=== PATIENT | male | born 1950 | race Two or more races ===

== ENCOUNTER → 2020-09-13 13:34 | Outpatient (BNVA) | payer MEDICARE, SELFPAY | PROVIDERS: PCP Internal Medicine; Visit Provider Urology | CPT/HCPCS: Q3014 ==

== ENCOUNTER 2021-01-15 10:49 | Outpatient (REF) | payer OTHER, SELFPAY ==
--- NOTE | ~2021-01-15 | US_ITS ---
EXAMINATION: US RETROPERITONEAL LIMITED (RENAL ONLY) CLINICAL INFORMATION: Calculus of kidney. COMPARISON: X-ray abdomen KUB 09/04/2020 and 07/22/2017. Renal ultrasound 08/09/2028 and 08/10/2018. TECHNIQUE: Real-time imaging of the kidneys. FINDINGS: RIGHT KIDNEY: 11.7 x 4.3 x 5.8 cm (SAG x AP x TRV). The kidney is normal in size, contour, and echogenicity. Renal cortical thickness is normal. No hydronephrosis. Lower pole cyst measuring up to 3.8 cm. Lower pole stone measuring 1.2 cm and midpole stone measuring 0.9 cm. LEFT KIDNEY: 10.6 x 5.6 x 6.2 cm (SAG x AP x TRV). The kidney is normal in size, contour, and echogenicity. Renal cortical thickness is normal. No hydronephrosis. Mid/lower pole simple cyst measuring 4.1 cm. Midpole stone measuring 0.7 cm. US/US renal BI IMPRESSION: 1. Bilateral renal stones measuring up to 1.2 cm on the right and 0.7 cm on the left. No hydronephrosis. 2. Simple bilateral renal cysts. Findings are not clinically significant and no follow-up imaging is recommended for the renal cysts.
== END 2021-01-15 10:50 | disposition home or self-care (01) ==
LOC: HO.US 10:49
PROVIDERS: Visit Provider Urology
DX: N20.0 Calculus of kidney (principal)
CPT/HCPCS: 76775

== ENCOUNTER 2021-03-13 10:11 | Outpatient (REF) | payer OTHER, MEDICARE, SELFPAY ==
[2021-03-13 10:48] LABS: Hematocrit 41.9 % (42-52); Mean Corpuscular HGB Conc 33.4 g/dl (31.0-36.0); Mean Corpuscular Hemoglobin 30.2 pg (27.0-33.0); Mean Corpuscular Volume 90.3 fL (80-98); Mean Platelet Volume 9.3 fL (9.4-12.4); Platelet Count 265 X10*3/uL (160-400); Red Blood Count 4.64 X10*6/uL (4.60-5.80); Red Cell Distribution Width 13.2 % (11.0-16.0); White Blood Count 9.3 X10*3/uL (4.8-10.8)
[2021-03-13 11:28] LABS: Prostate Specific Antigen 0.45 ng/mL (<0.05-4.0)
[2021-03-17 11:01] LABS: Testosterone, Total 208 ng/dL (250-1100)
== END 2021-03-13 10:12 | disposition home or self-care (01) ==
LOC: HO.LAB 10:11
PROVIDERS: PCP Internal Medicine; Visit Provider Urology
DX: E29.1 Testicular hypofunction (principal); N40.1 Benign prostatic hyperplasia with lower urinary tract symptoms; N13.8 Other obstructive and reflux uropathy; Z12.5 Encounter for screening for malignant neoplasm of prostate
CPT/HCPCS: 36415; 84153; 84403; 85027

== ENCOUNTER → 2021-06-12 12:31 | Outpatient (BNVA) | payer MEDICARE, OTHER, SELFPAY | PROVIDERS: PCP Internal Medicine; Visit Provider Urology | DX: E29.1 Testicular hypofunction (principal); N20.0 Calculus of kidney | CPT/HCPCS: Q3014 ==

== ENCOUNTER 2021-10-29 09:39 | Outpatient (REF) | payer MEDICARE, SELFPAY ==
--- NOTE | ~2021-10-29 | US_ITS ---
EXAMINATION: US RETROPERITONEAL LIMITED (RENAL ONLY) CLINICAL INFORMATION: Calculus of kidney. COMPARISON: US retroperitoneal limited (renal only) 01/15/2021 and 08/09/2019. XR abdomen KUB 09/04/2020 and 07/01/2017. TECHNIQUE: Real-time imaging of the kidneys. FINDINGS: RIGHT KIDNEY: 11.8 x 5.5 x 6.4 cm (SAG x AP x TRV). The kidney is normal in size, contour, and echogenicity. Renal cortical thickness is normal. No hydronephrosis. There is an anechoic cyst in midpole measuring 2.6 x 2.1 x 1.9 cm. There are echogenic stones in the midpole measuring 0.8 x 0.7 x 0.7 cm and lower pole measuring 1.0 x 0.5 x 0.7 cm. LEFT KIDNEY: 11.4 x 5.7 x 5.2 cm (SAG x AP x TRV). The kidney is normal in size, contour, and echogenicity. Renal cortical thickness is normal. No hydronephrosis. There is an anechoic cyst in the midpole measuring 3.7 x 3.5 x 2.9 cm. There is an echogenic nonobstructive stone upper pole measuring 0.7 x 0.3 cm and lower pole measuring 0.4 x 0.5 cm. US/US renal BI IMPRESSION: Bilateral renal cysts. Bilateral nonobstructive echogenic renal calculi.
== END 2021-10-29 09:40 | disposition home or self-care (01) ==
LOC: HO.US 09:39
PROVIDERS: PCP Internal Medicine; Visit Provider Urology
DX: N20.0 Calculus of kidney (principal)
CPT/HCPCS: 76775

== ENCOUNTER 2021-12-03 12:31 | Outpatient (REF) | payer MEDICARE, SELFPAY ==
[2021-12-03 12:55] LABS: Hemoglobin 13.6 g/dl (14.0-18.0); Mean Corpuscular HGB Conc 32.4 g/dl (31.0-36.0); Mean Corpuscular Hemoglobin 29.2 pg (27.0-33.0); Mean Corpuscular Volume 90.1 fL (80.0-98.0); Mean Platelet Volume 8.9 fL (9.4-12.4); Platelet Count 251 X10*3/uL (160-400); Red Blood Count 4.66 X10*6/uL (4.60-5.80); Red Cell Distribution Width 13.5 % (11.0-16.0); White Blood Count 11.2 X10*3/uL (4.8-10.8)
[2021-12-03 13:42] LABS: Prostate Specific Antigen 0.45 ng/mL (<0.05-4.0)
[2021-12-08 11:42] LABS: Testosterone, Total 253 ng/dL (250-1100)
== END 2021-12-03 12:32 | disposition home or self-care (01) ==
LOC: HO.LAB 12:31
PROVIDERS: PCP Internal Medicine; Visit Provider Urology
DX: E29.1 Testicular hypofunction (principal); Z12.5 Encounter for screening for malignant neoplasm of prostate
CPT/HCPCS: 36415; 84153; 84403; 85027

== ENCOUNTER → 2021-12-17 15:15 | Outpatient (BNVA) | payer MEDICARE, SELFPAY | PROVIDERS: PCP Internal Medicine; Visit Provider Urology | DX: E29.1 Testicular hypofunction (principal); N20.0 Calculus of kidney; E11.69 Type 2 diabetes mellitus with other specified complication; N52.1 Erectile dysfunction due to diseases classified elsewhere | CPT/HCPCS: 99212 ==

== ENCOUNTER → 2022-01-02 10:52 | Outpatient (BNVA) | payer MEDICARE, SELFPAY | PROVIDERS: PCP Internal Medicine; Visit Provider Urology | DX: E29.1 Testicular hypofunction (principal) | CPT/HCPCS: 96372 ==

== ENCOUNTER 2022-03-19 10:53 | Outpatient (REF) | payer MEDICARE, SELFPAY ==
[2022-03-19 12:02] LABS: Hematocrit 43.7 % (42.0-52.0); Hemoglobin 14.2 g/dl (14.0-18.0); Mean Corpuscular HGB Conc 32.5 g/dl (31.0-36.0); Mean Corpuscular Hemoglobin 28.5 pg (27.0-33.0); Mean Corpuscular Volume 87.8 fL (80.0-98.0); Mean Platelet Volume 9.2 fL (9.4-12.4); Platelet Count 313 X10*3/uL (160-400); Red Blood Count 4.98 X10*6/uL (4.60-5.80); Red Cell Distribution Width 13.8 % (11.0-16.0); White Blood Count 12.8 X10*3/uL (4.8-10.8)
[2022-03-19 12:26] LABS: Prostate Specific Antigen 0.52 ng/mL (<0.05-4.0)
[2022-03-24 09:47] LABS: Testosterone, Total 698 ng/dL (250-1100)
== END 2022-03-19 10:54 | disposition home or self-care (01) ==
LOC: HO.LAB 10:53
PROVIDERS: PCP Internal Medicine; Visit Provider Urology
DX: Z12.5 Encounter for screening for malignant neoplasm of prostate (principal); E29.1 Testicular hypofunction
CPT/HCPCS: 36415; 84153; 84403; 85027

== ENCOUNTER → 2022-04-02 12:56 | Outpatient (BNVA) | payer MEDICARE, SELFPAY | PROVIDERS: PCP Internal Medicine; Visit Provider Urology | DX: E29.1 Testicular hypofunction (principal); N20.0 Calculus of kidney; N40.1 Benign prostatic hyperplasia with lower urinary tract symptoms; N13.8 Other obstructive and reflux uropathy; E11.69 Type 2 diabetes mellitus with other specified complication; N52.1 Erectile dysfunction due to diseases classified elsewhere | CPT/HCPCS: 99212 ==

== ENCOUNTER → 2022-06-12 13:34 | Outpatient (BNVA) | payer MEDICARE, SELFPAY | PROVIDERS: PCP Internal Medicine; Visit Provider Urology | DX: N40.1 Benign prostatic hyperplasia with lower urinary tract symptoms (principal); N13.8 Other obstructive and reflux uropathy; E29.1 Testicular hypofunction; N52.1 Erectile dysfunction due to diseases classified elsewhere; N20.0 Calculus of kidney; E11.69 Type 2 diabetes mellitus with other specified complication | CPT/HCPCS: Q3014 ==

== ENCOUNTER 2022-09-08 13:58 | Outpatient (REF) | payer MEDICARE, SELFPAY ==
[2022-09-08 14:32] LABS: Hematocrit 37.9 % (42.0-52.0); Hemoglobin 11.7 g/dl (14.0-18.0); Mean Corpuscular HGB Conc 30.9 g/dl (31.0-36.0); Mean Corpuscular Hemoglobin 24.8 pg (27.0-33.0); Mean Corpuscular Volume 80.5 fL (80.0-98.0); Mean Platelet Volume 8.8 fL (9.4-12.4); Platelet Count 404 X10*3/uL (160-400); Red Blood Count 4.71 X10*6/uL (4.60-5.80); Red Cell Distribution Width 17.2 % (11.0-16.0); White Blood Count 13.1 X10*3/uL (4.8-10.8)
[2022-09-08 15:29] LABS: Prostate Specific Antigen 0.95 ng/mL (<0.05-4.0)
[2022-09-14 01:44] LABS: Testosterone, Total 912 ng/dL (250-1100)
== END 2022-09-08 13:59 | disposition home or self-care (01) ==
LOC: HO.LAB 13:58
PROVIDERS: PCP Internal Medicine; Visit Provider Urology
DX: Z12.5 Encounter for screening for malignant neoplasm of prostate (principal); E29.1 Testicular hypofunction
CPT/HCPCS: 36415; 84153; 84403; 85027

== ENCOUNTER → 2022-09-18 15:18 | Outpatient (BNVA) | payer MEDICARE, SELFPAY | PROVIDERS: PCP Internal Medicine; Visit Provider Urology | DX: E29.1 Testicular hypofunction (principal); N20.0 Calculus of kidney; N40.1 Benign prostatic hyperplasia with lower urinary tract symptoms; N13.8 Other obstructive and reflux uropathy; Z79.899 Other long term (current) drug therapy | CPT/HCPCS: Q3014 ==

== ENCOUNTER → 2022-10-08 10:45 | Outpatient (BNVA) | payer MEDICARE, SELFPAY | PROVIDERS: PCP Internal Medicine; Visit Provider Physician Assistant ==

== ENCOUNTER → 2022-10-22 13:32 | Outpatient (BNVA) | payer MEDICARE, SELFPAY | PROVIDERS: PCP Internal Medicine; Visit Provider Physician Assistant Surgical | DX: E66.01 Morbid (severe) obesity due to excess calories (principal); I48.91 Unspecified atrial fibrillation; Z68.42 Body mass index [BMI] 45.0-49.9, adult | CPT/HCPCS: 99202 ==

== ENCOUNTER 2022-10-28 10:47 | Outpatient (REF) | payer MEDICARE, SELFPAY ==
--- NOTE | ~2022-10-28 | XR_ITS ---
EXAMINATION: XR CHEST CLINICAL INFORMATION: Morbid to severe obesity due to excess calories COMPARISON: None available. TECHNIQUE: 2 views of the chest were obtained. FINDINGS: The lungs are hypoexpanded but clear of acute process. The heart size and pulmonary vascularity is normal. There are dual pacer electrodes in right atrium and right ventricle. No gross bony abnormality seen. XR/XR chest 2V IMPRESSION: Hypoexpanded lungs without acute process.
--- NOTE | 2022-10-28 11:06 | ECG_ITS ---
Test Reason : e66.01 Blood Pressure : / mmHG Vent. Rate : 095 BPM Atrial Rate : 095 BPM P-R Int : 192 ms QRS Dur : 088 ms QT Int : 328 ms P-R-T Axes : 038 016 087 degrees QTc Int : 412 ms Normal sinus rhythm Normal ECG No previous ECGs available Referred By: Rock Solis Electronically Signed By:KERRY CELAYA MD
[2022-10-28 11:14] LABS: MANUAL DIFF FLAG NO
[2022-10-28 11:44] LABS: Basophils Absolute Auto 0.1 X10*3/uL (0.0-0.2); Basophils Percent Auto 0.5 % (0-2); Eosinophils Absolute Auto 0.2 X10*3/uL (0.0-0.4); Eosinophils Percent Auto 1.4 % (0-4); Hematocrit 46.1 % (42.0-52.0); Hemoglobin 14.7 g/dl (14.0-18.0); Imm Gran Abs Auto 0.06 X10*3/uL (0.00-0.03); Imm Gran Pct Auto 0.5 % (0.0-0.4); Lymphocytes Absolute Auto 3.2 X10*3/uL (1.2-4.9); Lymphocytes Percent Auto 24.5 % (20-40); Mean Corpuscular HGB Conc 31.9 g/dl (31.0-36.0); Mean Corpuscular Hemoglobin 27.1 pg (27.0-33.0); Mean Corpuscular Volume 85.1 fL (80.0-98.0); Mean Platelet Volume 9.1 fL (9.4-12.4); Monocytes Absolute Auto 1.1 X10*3/uL (0.1-1.2); Monocytes Percent Auto 7.9 % (2-11); Neutrophils Absolute Auto 8.6 x10*3/uL (2.0-8.3); Neutrophils Percent Auto 65.2 % (45-73); Platelet Count 288 X10*3/uL (160-400); Red Blood Count 5.42 X10*6/uL (4.60-5.80); Red Cell Distribution Width 20.9 % (11.0-16.0); White Blood Count 13.2 X10*3/uL (4.8-10.8)
[2022-10-28 11:56] LABS: Estimated Average Glucose 151 mg/dL; Hemoglobin A1c % 6.9 %
[2022-10-28 12:24] LABS: Alanine Aminotransferase 83 U/L (0-40); Albumin Level 4.1 g/dL (3.5-5.0); Alkaline Phosphatase 88 U/L (39-117); Anion Gap 11 (12-20); Aspartate Amino Transferase 53 U/L (5-37); Bilirubin Total 0.9 mg/dL (0.0-1.0); Blood Urea Nitrogen 18 mg/dL (9-16); C Reactive Protein 0.47 mg/dL (< or = 0.50); Calcium 9.3 mg/dL (8.4-10.2); Carbon Dioxide 27 mmol/L (22-29); Chloride 105 mmol/L (96-108); Cholesterol 111 mg/dL; Estimated Glomerular Filt Rate > 60; Glucose Random 210 mg/dL (60-115); HDL Cholesterol 41 mg/dL; Iron 142 mcg/dL (45-160); LDL Cholesterol Calculated 41 mg/dl; Percent Iron Saturation 38 % (15-50); Potassium 4.4 mmol/L (3.3-5.1); Sodium 139 mmol/L (135-145); Total Iron Binding Capacity 376 mcg/dL (228-428); Total Protein 7.2 g/dL (6.5-8.0); Triglycerides 147 mg/dL; Unsaturated Iron Binding 234 ug/dL
[2022-10-28 12:56] LABS: Ferritin 38 ng/mL (20-250); Folate 9.5 ng/mL (> or = 4.0); Insulin 79 uU/mL (2-29); TSH reflex Free T4 0.95 uIU/mL (0.32-4.0); Vitamin B12 228 pg/mL (200-900)
[2022-10-29 16:13] LABS: Calcium (PTHI) 9.4 mg/dL (8.6-10.3); PTHI 26 pg/mL (16-77)
[2022-11-01 04:49] LABS: Zinc 85 mcg/dL (60-130)
[2022-11-01 16:53] LABS: Vitamin B1 7 nmol/L (8-30)
[2022-11-04 23:52] LABS: Vitamin A 49 mcg/dL (38-98)
== END 2022-10-28 10:48 | disposition home or self-care (01) ==
LOC: HO.LAB 10:47
PROVIDERS: PCP Internal Medicine; Visit Provider Physician Assistant Surgical
DX: E11.9 Type 2 diabetes mellitus without complications (principal); E66.01 Morbid (severe) obesity due to excess calories; E78.00 Pure hypercholesterolemia, unspecified; I10 Essential (primary) hypertension
CPT/HCPCS: 36415; 71046; 80053; 80061; 82306; 82607; 82728; 82746; 83036; 83525; 83540; 83970; 84425; 84443; 84590; 84630; 85025; 86140; 93005

== ENCOUNTER → 2022-11-12 12:53 | Outpatient (BNVA) | payer MEDICARE, SELFPAY | PROVIDERS: PCP Internal Medicine; Visit Provider Physician Assistant Surgical | DX: E66.01 Morbid (severe) obesity due to excess calories (principal); E11.9 Type 2 diabetes mellitus without complications; R82.992 Hyperoxaluria; Z68.42 Body mass index [BMI] 45.0-49.9, adult; Z98.84 Bariatric surgery status | CPT/HCPCS: 99212 ==

== ENCOUNTER 2023-03-10 10:22 | Outpatient (REF) | payer MEDICARE, SELFPAY ==
--- NOTE | ~2023-03-10 | US_ITS ---
EXAMINATION: US RETROPERITONEAL LIMITED (RENAL ONLY) CLINICAL INFORMATION: Calculus of kidney. COMPARISON: Renal ultrasound 10/29/2021 and 01/15/2021. X-ray abdomen 09/04/2020. TECHNIQUE: Real-time imaging of the kidneys. FINDINGS: RIGHT KIDNEY: 12.0 x 5.1 x 4.7 cm (SAG x AP x TRV). The kidney is normal in size, contour, and echogenicity. Renal cortical thickness is normal. Echogenic foci noted in the mid and lower pole of the kidney consistent with nonobstructing calculi, the largest measuring 1.5 cm. No hydronephrosis. A benign 4.0 cm Bosniak class I renal cyst is noted which requires no additional imaging or follow up. No solid renal masses are seen. LEFT KIDNEY: 10.8 x 5.4 x 5.4 cm (SAG x AP x TRV). The kidney is normal in size, contour, and echogenicity. Renal cortical thickness is normal. No renal calculi or hydronephrosis. A benign 3.7 cm Bosniak class I renal cyst is noted which requires no additional imaging or follow up. No solid renal masses are seen. US/US renal BI IMPRESSION: 1. Nonobstructing right renal calculi. 2. Bilateral benign Bosniak class I renal cysts which need no additional imaging or follow up.
[2023-03-10 10:51] LABS: Hematocrit 48.7 % (42.0-52.0); Hemoglobin 15.9 g/dl (14.0-18.0); Mean Corpuscular HGB Conc 32.6 g/dl (31.0-36.0); Mean Corpuscular Hemoglobin 29.9 pg (27.0-33.0); Mean Corpuscular Volume 91.5 fL (80.0-98.0); Mean Platelet Volume 9.4 fL (9.4-12.4); Platelet Count 259 X10*3/uL (160-400); Red Blood Count 5.32 X10*6/uL (4.60-5.80); Red Cell Distribution Width 13.8 % (11.0-16.0); White Blood Count 9.7 X10*3/uL (4.8-10.8)
[2023-03-10 11:46] LABS: Prostate Specific Antigen 1.12 ng/mL (<0.05-4.0)
[2023-03-14 16:52] LABS: Testosterone, Total 927 ng/dL (250-1100)
== END 2023-03-10 10:23 | disposition home or self-care (01) ==
LOC: HO.US 10:22
PROVIDERS: PCP Internal Medicine; Visit Provider Urology
DX: Z12.5 Encounter for screening for malignant neoplasm of prostate (principal); N20.0 Calculus of kidney; E29.1 Testicular hypofunction
CPT/HCPCS: 36415; 76775; 84153; 84403; 85027

== ENCOUNTER 2023-03-24 14:08 | Outpatient (AMB) | payer MEDICARE, SELFPAY ==
--- NOTE | 2023-03-24 14:22 | MHC.OFFVIS ---
Intake Intake Visit Reasons: 6m T/PSA/CBC/US(set) Intake Note: Patient is Present for Follow Up labs/US Urology Medication: Vitamin B6, Sildenafil, Tamsulosin, Testosterone Antibiotic Allergies: None Blood Thinners: t3n [facility] Allergies No Known Allergies [No Known Allergies*] Allergy (Verified 03/24/23 14:24) HPI HPI Comments History of Present Illness Details Adeline Gonzalez is a very pleasant male of [place] extraction. He is a patient of Dr Isidro. He is seen for the following urologic conditions - hypogonadism - nephrolithiasis - lower urinary tract symptoms Continue good response to testosterone Labs within normal limits Prescriptions provided Check nephrolithiasis 6 months Hypogonadism: Lab work stable Continue to follow. - testosterone injectable 80 mg weekly The patient presents for hypogonadism which was diagnosed years ago, and the patient reports no current symptoms. Laboratory testing has included Testosterone August 2014 446, August 2015 418 PSA 10/12 0.6 10/13 , Testosterone 247 - switch back to 2 packets per day, 11/12 , Testosterone - 6 pumps - 647, 05/15 , Testosterone 404, PSA 0.6 08/17 T 551, PSA 0.5, 02/14 T 739 PSA 0.8 02/15 T 701 PSA 0.6, 03/19 T 208 PSA 0.5, 12/18 253 0.5 42, 03/20 700 0.5 44, 09/18 T 912 P 1.0, 03/21 t 920 P 1.1 Erectile dysfunction secondary to diabetes Responsive to sildenafil 100 mg on demand Lower urinary tract symptoms Initial presentation with weakness of stream and nocturia Good response to Flomax with decreased nocturia Nephrolithiasis/Urolithiasis: They are here for further evaluation of nephrolithiasis - minimal symptoms. Urolithiasis was diagnosed 2014. The patient previously had kidney stones whose composition w a calcium oxalate 09/15 , calcium oxalate - dihydrate 80%. Laboratory investigations include 11/11 - , Normocalcemia (9.0), Normal PTH, Normal uric acid. 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 Prior treatment(s) include 06/14 R ESWL 12/14 medical management, with allopurinol, vitamin B6. Prior imaging includes a CT (computed tomography) scan of the abdomen/pelvis (stone protocol) August 2014. 3 stones each one to 2 mm in size low pole right kidney. , an x-ray August 2015 4 mm right lower pole, 04/13 R 5mmx3 mid pole 10/13 , , a KUB x-ray 5mm right 04/14 , a KUB x-ray, showing radiodense stone(s) R >L - 6mm 07/16 KUB small fragments on right 01/13 , a renal ultrasound, showing radiodense stone(s) R>L - small each side 08/17 , a renal ultrasound bilateral small stones, right cyst 08/18 renal us - stones 5mm on right, none on left, cysts small bilateral 01/16 renal ultrasound right kidney 1.2 cm stone, left kidney 7 mm, 11/17 renal ultrasound bilateral stones similar size Current therapeutic plan will be Keep on Vit B6 PFSH Medical History Impotence Obesity HTN (hypertension) Diabetes mellitus, type II Hyperoxaluria Weak urinary stream Hypogonadism in male Erectile dysfunction Surgical History S/P panniculectomy S/P ventral herniorrhaphy S/P cardiac pacemaker procedure Hx of laparoscopic gastric banding Hx of knee surgery History of surgery Family History Mother Hypertension Diabetes Father Heart disease Diabetes Sister No problems noted. Sister No problems noted. Sister No problems noted. Sister No problems noted. Sister Diabetes Sister No problems noted. Sister Diabetes Brother No problems noted. Brother Diabetes Son No problems noted. Son No problems noted. Daughter No problems noted. Daughter No problems noted. Daughter Diabetes Social History Alcohol intake: never Patient Tobacco Use Status: Never used Tobacco Review of Systems Const Denies chills and Denies fever(s) Card Reports no additional complaints and Denies syncope Resp Denies cough GI Denies abdominal pain and Denies heartburn Reports as per HPI and Denies change in libido Neuro Denies syncope Psych Denies change in libido Endo Denies change in libido Physical Exam Const General: cooperative, healthy appearing, comfortable and no acute distress Orientation/consciousness: patient oriented x3 HEENT Face and sinus: Yes normal facial exam Mouth: moist mucous membranes Neck Neck: Yes normal visual inspection, Yes full ROM and Yes trachea midline Chest Chest palpation & inspection: normal inspection of the chest Resp Effort & Inspection: normal respiratory effort, able to speak in complete sentences and no respiratory distress GI Inspection: Yes normal to inspection Back/Spine/Pelvis Cervical Spine: normal cervical lordosis Thoracic/Lumbar Spine: thoracic and lumbar spine normal to inspection Skin General skin exam: no rashes or lesions noted Neuro General: patient oriented x3, gait normal, tone normal and moves all extremities Extrem General: Yes normal to inspection and Yes capillary refill normal Assessment & Plan Assessment & Plan (1) BPH w urinary obs/LUTS: Code(s): N40.1 - Benign prostatic hyperplasia with lower urinary tract symptoms; N13.8 - Other obstructive and reflux uropathy (2) Erectile dysfunction associated with type 2 diabetes mellitus: Code(s): E11.69 - Type 2 diabetes mellitus with other specified complication; N52.1 - Erectile dysfunction due to diseases classified elsewhere (3) Nephrolithiasis: Code(s): N20.0 - Calculus of kidney (4) Hypogonadism in male: Code(s): E29.1 - Testicular hypofunction Plan Six month follow-up lab work Orders: Orders Prostate Specific Antigen 6 Months E29.1 - Testicular hypofunction Complete Blood Count no Diff 6 Months E29.1 - Testicular hypofunction Testosterone, Total 6 Months E29.1 - Testicular hypofunction Medications: New tadalafil 5 mg PO DAILY 90 tabs 1RF sexual activity 90 days E11. - Type 2 diabetes mellitus with other specified complication, N52.1 - Erectile dysfunction due to diseases classified elsewhere tadalafil On demand medication take 60 minutes before intended activity 20 mg PO ONCE PRN 30 tabs 0RF sexual activity 30 days E11 - Type 2 diabetes mellitus with other specified complication, N52.1 - Erectile dysfunction due to diseases classified elsewhere Patient Instructions: Imaging studies, laboratory and physical exam results were discussed and reviewed in detail. No major barriers to patient understanding were identified. An opportunity to ask questions regarding the treatment plan was provided. All questions were answered. The patient expressed understanding and agreement with the above treatment plan. The patient is aware they should contact our office by phone for worsening of their current condition or the appearance of new urologic symptoms. Compliance is encouraged with any medications and followup testing that is ordered. It is a privilege to participate in the urologic care of your patient. If you have any questions or concerns regarding treatment for the above conditions, or other urologic issues, please do not hesitate to contact me. The office telephone contact is [phone]. This note is constructed using voice recognition software. While every effort has been made to ensure accuracy cloth napping supervisor errors may have been included. Yours sincerely, Dr Paul Macdonald MD, [facility] - Urology Providers of Expert, Compassionate Care for the Genitourinary System Coding Level of Care Code Est Pt Level 3 (44482) Diagnoses BPH w urinary obs/LUTS N40.1; N13.8 Erectile dysfunction associated with type 2 diabetes mellitus E11.69; N52.1 Nephrolithiasis N20.0 Hypogonadism in male E29.1
== END 2023-03-24 14:55 | disposition home or self-care (01) ==
PROVIDERS: PCP Internal Medicine; Visit Provider Urology
DX: N40.1 Benign prostatic hyperplasia with lower urinary tract symptoms (principal); N13.8 Other obstructive and reflux uropathy; E11.69 Type 2 diabetes mellitus with other specified complication; N52.1 Erectile dysfunction due to diseases classified elsewhere; N20.0 Calculus of kidney; E29.1 Testicular hypofunction
CPT/HCPCS: 99213

== ENCOUNTER → 2023-03-24 14:08 | Outpatient (BNVA) | payer MEDICARE, SELFPAY | PROVIDERS: PCP Internal Medicine; Visit Provider Urology | DX: N40.1 Benign prostatic hyperplasia with lower urinary tract symptoms (principal); N13.8 Other obstructive and reflux uropathy; E11.69 Type 2 diabetes mellitus with other specified complication; N52.1 Erectile dysfunction due to diseases classified elsewhere; N20.0 Calculus of kidney; E29.1 Testicular hypofunction | CPT/HCPCS: 99212 ==

== ENCOUNTER 2023-09-22 13:48 | Outpatient (AMB) | payer MEDICARE, SELFPAY ==
--- NOTE | 2023-09-22 13:49 | A.OFFVIS_ITS ---
Intake Intake Visit Reasons: 6M PSA/T/CBC(set)Confirmed Intake Note: Patient is Present for Telephone Follow Up Urology Med: Vitamin B6, Sildenafil,Tadalafil, Testosterone Antibiotic Allergy: None Blood Thinner: Eliquis Allergies No Known Allergies [No Known Allergies*] Allergy (Verified 09/22/23 13:49) Medication List - Last Reconciled 09/22/23 by Paul Macdonald MD allopurinol 100 mg PO DAILY 90 days apixaban (Eliquis) 5 mg PO BID atorvastatin 40 mg PO DAILY blood sugar diagnostic (Pandora.TVTouch Verio test strips) As directed blood-glucose meter (Pandora.TVTouch Verio Flex Meter) As directed cholecalciferol (vitamin D3) 50 mcg PO DAILY cyanocobalamin (vitamin B-12) 500 mcg PO DAILY ferrous sulfate (FeroSul) 325 mg PO DAILY glipizide ER 2.5 mg PO DAILY lancets (HYLT [employer] Delica Plus Lancet) As directed loratadine 10 mg PO DAILY losartan 100 mg PO DAILY metformin 1,000 mg PO BID metoprolol succinate ER 25 mg PO DAILY needle (disp) 18 G (BD Regular Bevel [place]) As directed weekly needle (disp) 25 gauge (BD Regular Bevel [place]) As directed weekly omeprazole 40 mg PO DAILY pyridoxine (vitamin B6) 100 mg PO DAILY 90 days safety needles (BD Eclipse Luer-Naveed) As directed sildenafil 100 mg PO ONCE PRN 30 days syringe (disposable) (BD Luer-Naveed Syringe) Testosterone injection weekly tadalafil 20 mg PO ONCE PRN 30 days tadalafil 5 mg PO DAILY 90 days tamsulosin (Flomax) 0.4 mg PO BEDTIME 90 days testosterone cypionate (Depo-Testosterone) 80 mg (0.4 mL) subcut QWEEK 4 weeks thiamine HCl (vitamin B1) 100 mg PO DAILY HPI HPI Comments History of Present Illness Details Adeline Gonzalez is a very pleasant male of [place] extraction. He is a patient of Dr Isidro. He is seen for the following urologic conditions - hypogonadism - nephrolithiasis - lower urinary tract symptoms Telemedicine Evaluation 15 min Consultation [employer] Video attempted Continue good response to testosterone Labs within normal limits Prescriptions provided Hypogonadism: Lab work stable Continue to follow. - testosterone injectable 80 mg weekly The patient presents for hypogonadism which was diagnosed years ago, and the patient reports no current symptoms. Laboratory testing has included Testosterone August 2014 446, August 2015 418 PSA 10/12 0.6 10/13 , Testosterone 247 - switch back to 2 packets per day, 11/12 , Testosterone - 6 pumps - 647, 05/15 , Testosterone 404, PSA 0.6 08/17 T 551, PSA 0.5, 02/14 T 739 PSA 0.8 02/15 T 701 PSA 0.6, 03/19 T 208 PSA 0.5, 12/18 253 0.5 42, 03/20 700 0.5 44, 09/18 T 912 P 1.0, 03/21 T920 P 1.1, 09/19 T 640 Erectile dysfunction secondary to diabetes Responsive to sildenafil 100 mg on demand Lower urinary tract symptoms Initial presentation with weakness of stream and nocturia Good response to Flomax with decreased nocturia Nephrolithiasis/Urolithiasis: They are here for further evaluation of nephrolithiasis - minimal symptoms. Urolithiasis was diagnosed 2014. The patient previously had kidney stones whose composition w a calcium oxalate 09/15 , calcium oxalate - dihydrate 80%. Laboratory investigations include 11/11 - , Normocalcemia (9.0), Normal PTH, Normal uric acid. 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 Prior treatment(s) include 06/14 R ESWL 12/14 medical management, with allopurinol, vitamin B6. Prior imaging includes a CT (computed tomography) scan of the abdomen/pelvis (stone protocol) August 2014. 3 stones each one to 2 mm in size low pole right kidney. , an x-ray August 2015 4 mm right lower pole, 04/13 R 5mmx3 mid pole 10/13 , , a KUB x-ray 5mm right 04/14 , a KUB x-ray, showing radiodense stone(s) R >L - 6mm 07/16 KUB small fragments on right 01/13 , a renal ultrasound, showing radiodense stone(s) R>L - small each side 08/17 , a renal ultrasound bilateral small stones, right cyst 08/18 renal us - stones 5mm on right, none on left, cysts small bilateral 01/16 renal ultrasound right kidney 1.2 cm stone, left kidney 7 mm, 11/17 renal ultrasound bilateral stones similar size Current therapeutic plan will be Keep on Vit B6 PFSH Medical History Impotence Obesity HTN (hypertension) Diabetes mellitus, type II Hyperoxaluria Weak urinary stream Hypogonadism in male Erectile dysfunction Surgical History S/P panniculectomy S/P ventral herniorrhaphy S/P cardiac pacemaker procedure Hx of laparoscopic gastric banding Hx of knee surgery History of surgery Family History Mother Hypertension Diabetes Father Heart disease Diabetes Sister No problems noted. Sister No problems noted. Sister No problems noted. Sister No problems noted. Sister Diabetes Sister No problems noted. Sister Diabetes Brother No problems noted. Brother Diabetes Son No problems noted. Son No problems noted. Daughter No problems noted. Daughter No problems noted. Daughter Diabetes Social History Alcohol intake: never Patient Tobacco Use Status: Never used Tobacco Review of Systems Const All systems reviewed & are unremarkable except as noted in HPI and below Reports no additional complaints Resp Reports no additional complaints GI Reports no additional complaints Reports as per HPI Musc Reports no additional complaints Physical Exam Telemedicine evaluation Appropriate responses Regular breathing rate and rhythm HEENT Head: Yes normal to inspection Ears: hearing grossly normal bilaterally Eyes General: appearance normal, both eyes and all related structures Neck Neck: Yes normal visual inspection Chest Chest palpation & inspection: normal inspection of the chest Resp Effort & Inspection: normal respiratory effort and able to speak in complete sentences Assessment & Plan Assessment & Plan (1) BPH w urinary obs/LUTS: Code(s): N40.1 - Benign prostatic hyperplasia with lower urinary tract symptoms; N13.8 - Other obstructive and reflux uropathy (2) Erectile dysfunction associated with type 2 diabetes mellitus: Code(s): E11.69 - Type 2 diabetes mellitus with other specified complication; N52.1 - Erectile dysfunction due to diseases classified elsewhere Plan Six-month follow-up Orders: Orders Complete Blood Count no Diff 6 Months E29.1 - Testicular hypofunction Testosterone, Total 6 Months E29.1 - Testicular hypofunction Prostate Specific Antigen 6 Months E29.1 - Testicular hypofunction Medications: Refilled tadalafil 5 mg PO DAILY 90 tabs 1RF sexual activity 90 days E11.69 - Type 2 diabetes mellitus with other specified complication, N52.1 - Erectile dysfunction due to diseases classified elsewhere Patient Instructions: Imaging studies, laboratory and physical exam results were discussed and reviewed in detail. No major barriers to patient understanding were identified. An opportunity to ask questions regarding the treatment plan was provided. All questions were answered. The patient expressed understanding and agreement with the above treatment plan. The patient is aware they should contact our office by phone for worsening of their current condition or the appearance of new urologic symptoms. Compliance is encouraged with any medications and followup testing that is ordered. It is a privilege to participate in the urologic care of your patient. If you have any questions or concerns regarding treatment for the above conditions, or other urologic issues, please do not hesitate to contact me. The office telephone contact is [phone]. This note is constructed using voice recognition software. While every effort has been made to ensure accuracy anode crew supervisor errors may have been included. Yours sincerely, Dr Paul Macdonald MD, [facility] - Urology Providers of Expert, Compassionate Care for the Genitourinary System Telehealth Telehealth Location of provider rendering services: practice address Location of patient: address on file Patient Identification confirmed using: Name, : Yes Telehealth method: video Patient verbally consented to treatment: Yes Patient verbally consented to billing insurance company: Yes Patient informed of any privacy concerns related to visit: Yes Coding Level of Care Code Tele Est Pt Level 3 (43430) Diagnoses BPH w urinary obs/LUTS N40.1; N13.8 Erectile dysfunction associated with type 2 diabetes mellitus E11.69; N52.1
== END 2023-09-22 15:31 | disposition home or self-care (01) ==
LOC: HO.HUSH 13:48
PROVIDERS: PCP Internal Medicine; Visit Provider Urology
DX: N40.1 Benign prostatic hyperplasia with lower urinary tract symptoms (principal); N13.8 Other obstructive and reflux uropathy; E11.69 Type 2 diabetes mellitus with other specified complication; N52.1 Erectile dysfunction due to diseases classified elsewhere
CPT/HCPCS: 99213

== ENCOUNTER → 2023-09-22 13:48 | Outpatient (BNVA) | payer MEDICARE, SELFPAY | PROVIDERS: PCP Internal Medicine; Visit Provider Urology ==

== ENCOUNTER 2024-03-09 10:58 | Outpatient (REF) | payer MEDICARE, SELFPAY ==
[2024-03-09 11:38] LABS: Mean Corpuscular HGB Conc 33.3 g/dl (31.0-36.0); Mean Platelet Volume 8.9 fL (9.4-12.4); Platelet Count 253 X10*3/uL (160-400); Red Blood Count 5.16 X10*6/uL (4.60-5.80); Red Cell Distribution Width 13.6 % (11.0-16.0); White Blood Count 8.5 X10*3/uL (4.8-10.8)
[2024-03-09 12:34] LABS: Prostate Specific Antigen 0.96 ng/mL (<0.05-4.0)
[2024-03-13 15:24] LABS: Testosterone, Total 797 ng/dL (250-1100)
== END 2024-03-09 10:59 | disposition home or self-care (01) ==
LOC: HO.LAB 10:58
PROVIDERS: PCP Internal Medicine; Visit Provider Urology
DX: E29.1 Testicular hypofunction (principal); Z12.5 Encounter for screening for malignant neoplasm of prostate
CPT/HCPCS: 36415; 84153; 84403; 85027

== ENCOUNTER 2024-03-23 12:53 | Outpatient (AMB) | payer MEDICARE, SELFPAY ==
--- NOTE | 2024-03-23 12:56 | A.OFFVIS_ITS ---
Intake Visit Reasons: 6M PSA/Testosterone(set) Intake Note: Patient is Present for Follow Up PSA/Testosterone Urology Medication: Tadalafil, Tamsulosin,Vitamin B6, Testosterone Antibiotic Allergies: None Blood Thinners: Eliquis Recent labs: 03/09/24 PSA: 0.96 Testo: 797 Recent Hemoglobin A1C: 6.9 (2022) Vault Clerk Required: No Accompanied by: Self / Same As Patient Allergies No Known Allergies [No Known Allergies*] Allergy (Verified 03/23/24 13:03) Medication List - Last Reconciled 03/23/24 by Paul Macdonald MD alfuzosin ER 10 mg PO BEDTIME 90 days allopurinol 100 mg PO DAILY 90 days apixaban (Eliquis) 5 mg PO BID atorvastatin 40 mg PO DAILY blood sugar diagnostic ([employer] Verio test strips) As directed blood-glucose meter ([employer] Verio Flex Meter) As directed cholecalciferol (vitamin D3) 50 mcg PO DAILY cyanocobalamin (vitamin B-12) 500 mcg PO DAILY ferrous sulfate (FeroSul) 325 mg PO DAILY glipizide ER 2.5 mg PO DAILY lancets (Mobifusion Delica Plus Lancet) As directed loratadine 10 mg PO DAILY losartan 100 mg PO DAILY metformin 1,000 mg PO BID metoprolol succinate ER 25 mg PO DAILY needle (disp) 18 G (BD Regular Bevel [place]) As directed weekly needle (disp) 25 gauge (BD Regular Bevel [place]) As directed weekly omeprazole 40 mg PO DAILY pyridoxine (vitamin B6) 100 mg PO DAILY 90 days safety needles (BD Eclipse Luer-Naveed) As directed sildenafil 100 mg PO ONCE PRN 30 days syringe (disposable) (BD Luer-Naveed Syringe) Testosterone injection weekly tadalafil 5 mg PO DAILY 90 days tadalafil 20 mg PO ONCE PRN 30 days testosterone cypionate (Depo-Testosterone) 80 mg (0.4 mL) subcut QWEEK 4 weeks thiamine HCl (vitamin B1) 100 mg PO DAILY HPI Comments Details: Adeline Gonzalez is a very pleasant male of [place] extraction. He is a patient of Dr Isidro. He is seen for the following urologic conditions - hypogonadism - nephrolithiasis - lower urinary tract symptoms Continue good response to testosterone Labs within normal limits Would like to increase tadalafil on demand Injection provided Also has had retrograde ejaculation and Will switch from Flomax to alfuzosin Hypogonadism: Lab work stable Continue to follow. - testosterone injectable 80 mg weekly The patient presents for hypogonadism which was diagnosed years ago, and the patient reports no current symptoms. Laboratory testing has included Testosterone August 2014 446, August 2015 418 PSA 10/12 0.6 10/13 , Testosterone 247 - switch back to 2 packets per day, 11/12 , Testosterone - 6 pumps - 647, 05/15 , Testosterone 404, PSA 0.6 08/17 T 551, PSA 0.5, 02/14 T 739 PSA 0.8 02/15 T 701 PSA 0.6, 03/19 T 208 PSA 0.5, 12/18 253 0.5 42, 03/20 700 0.5 44, 09/18 T 912 P 1.0, 03/21 T920 P 1.1, 09/19 T 640, 03/22 800 0.96 48 Erectile dysfunction secondary to diabetes As responsive to daily 5 mg tadalafil and on demand Lower urinary tract symptoms Initial presentation with weakness of stream and nocturia Good response to Flomax with decreased nocturia Switch from Flomax to alfuzosin for retrograde ejaculation Nephrolithiasis/Urolithiasis: They are here for further evaluation of nephrolithiasis - minimal symptoms. Urolithiasis was diagnosed 2014. The patient previously had kidney stones whose composition w a calcium oxalate 09/15 , calcium oxalate - dihydrate 80%. Laboratory investigations include 11/11 - , Normocalcemia (9.0), Normal PTH, Normal uric acid. 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 Prior treatment(s) include 06/14 R ESWL 12/14 medical management, with allopurinol, vitamin B6. Prior imaging includes a CT (computed tomography) scan of the abd omen/pelvis (stone protocol) August 2014. 3 stones each one to 2 mm in size low pole right kidney. , an x-ray August 2015 4 mm right lower pole, 04/13 R 5mmx3 mid pole 10/13 , , a KUB x-ray 5mm right 04/14 , a KUB x-ray, showing radiodense stone(s) R >L - 6mm 07/16 KUB small fragments on right 01/13 , a renal ultrasound, showing radiodense stone(s) R>L - small each side 08/17 , a renal ultrasound bilateral small stones, right cyst 08/18 renal us - stones 5mm on right, none on left, cysts small bilateral 01/16 renal ultrasound right kidney 1.2 cm stone, left kidney 7 mm, 11/17 renal ultrasound bilateral stones similar size Current therapeutic plan will be Keep on Vit B6 [facility] Medical History Impotence Obesity HTN (hypertension) Diabetes mellitus, type II Hyperoxaluria Weak urinary stream Hypogonadism in male Erectile dysfunction Surgical History S/P panniculectomy S/P ventral herniorrhaphy S/P cardiac pacemaker procedure Hx of laparoscopic gastric banding Hx of knee surgery History of surgery Family History Mother Hypertension Diabetes Father Heart disease Diabetes Sister No problems noted. Sister No problems noted. Sister No problems noted. Sister No problems noted. Sister Diabetes Sister No problems noted. Sister Diabetes Brother No problems noted. Brother Diabetes Son No problems noted. Son No problems noted. Daughter No problems noted. Daughter No problems noted. Daughter Diabetes Social History Alcohol intake: never Patient Tobacco Use Status: Never used Tobacco Review of Systems Const Denies chills and Denies fever(s) Card Reports no additional complaints and Denies syncope Resp Denies cough GI Denies abdominal pain and Denies heartburn Reports as per HPI and Denies change in libido Neuro Denies syncope Psych Denies change in libido Endo Denies change in libido Physical Exam Const General: cooperative, healthy appearing, comfortable and no acute distress Orientation/consciousness: patient oriented x3 HEENT Face and sinus: Yes normal facial exam Mouth: moist mucous membranes Neck Neck: Yes normal visual inspection, Yes full ROM and Yes trachea midline Chest Chest palpation & inspection: normal inspection of the chest Resp Effort & Inspection: normal respiratory effort, able to speak in complete sentences and no respiratory distress GI Inspection: Yes normal to inspection Back/Spine/Pelvis Cervical Spine: normal cervical lordosis Thoracic/Lumbar Spine: thoracic and lumbar spine normal to inspection Skin General skin exam: no rashes or lesions noted Neuro General: patient oriented x3, gait normal, tone normal and moves all extremities Extrem General: Yes normal to inspection and Yes capillary refill normal Assessment & Plan Assessment & Plan (1) BPH w urinary obs/LUTS: Code(s): N40.1 - Benign prostatic hyperplasia with lower urinary tract symptoms; N13.8 - Other obstructive and reflux uropathy Category: Medical (2) Erectile dysfunction associated with type 2 diabetes mellitus: Code(s): E11.69 - Type 2 diabetes mellitus with other specified complication; N52.1 - Er ectile dysfunction due to diseases classified elsewhere Category: Medical (3) Hypogonadism in male: Code(s): E29.1 - Testicular hypofunction Category: Medical Plan Three-month follow-up tele Medications: New alfuzosin ER Take before bedtime 10 mg PO BEDTIME 90 days 90 tabs 0RF N13.8 - Other obstructive and reflux uropathy, N40.1 - Benign prostatic hyperplasia with lower urinary tract symptoms, R39.12 - Poor urinary stream Refilled testosterone cypionate (Depo-Testosterone) 80 mg (0.4 mL) subcut QWEEK 4 weeks 2 mL 5RF E29.1 - Testicular hypofunction, [id number] tadalafil 5 mg PO DAILY 90 days 90 tabs 1RF sexual activity E11.69 - Type 2 diabetes mellitus with other specified complication, N52.1 - Erectile dysfunction due to diseases classified elsewhere tadalafil On demand medication take 60 minutes before intended activity 20 mg PO ONCE 30 days PRN 30 tabs 1RF sexual activity E11.69 - Type 2 diabetes mellitus with other specified complication, N52.1 - Erectile dysfunction due to diseases classified elsewhere Discontinued tamsulosin (Flomax) Discontinued Reason: Doctor's Order 0.4 mg PO BEDTIME 90 days 90 caps 1RF N13.8 - Other obstructive and reflux uropathy, N40.1 - Benign prostatic hyperplasia with lower urinary tract symptoms Patient Instructions: Imaging studies, laboratory and physical exam results were discussed and reviewed in detail. No major barriers to patient understanding were identified. An opportunity to ask questions regarding the treatment plan was provided. All questions were answered. The patient expressed understanding and agreement with the above treatment plan. The patient is aware they should contact our office by phone for worsening of their current condition or the appearance of new urologic symptoms. Compliance is encouraged with any medications and followup testing that is ordered. It is a privilege to participate in the urologic care of your patient. If you have any questions or concerns regarding treatment for the above conditions, or other urologic issues, please do not hesitate to contact me. The office telephone contact is [phone]. This note is constructed using voice recognition software. While every effort has been made to ensure accuracy manager global communications errors may have been included. Yours sincerely, Dr Paul Macdonald MD, [facility] - Urology Providers of Expert, Compassionate Care for the Genitourinary System Coding Level of Care Code Est Pt Level 4 (30346) Diagnoses BPH w urinary obs/LUTS N40.1; N13.8 Erectile dysfunction associated with type 2 diabetes mellitus E11.69; N52.1 Hypogonadism in male E29.1
== END 2024-03-23 13:28 | disposition home or self-care (01) ==
PROVIDERS: PCP Internal Medicine; Visit Provider Urology
DX: N40.1 Benign prostatic hyperplasia with lower urinary tract symptoms (principal); N13.8 Other obstructive and reflux uropathy; E11.69 Type 2 diabetes mellitus with other specified complication; N52.1 Erectile dysfunction due to diseases classified elsewhere; E29.1 Testicular hypofunction
CPT/HCPCS: 99214

== ENCOUNTER → 2024-03-23 12:53 | Outpatient (BNVA) | payer MEDICARE, SELFPAY | PROVIDERS: PCP Internal Medicine; Visit Provider Urology | DX: N40.1 Benign prostatic hyperplasia with lower urinary tract symptoms (principal); N13.8 Other obstructive and reflux uropathy; N52.1 Erectile dysfunction due to diseases classified elsewhere; E11.69 Type 2 diabetes mellitus with other specified complication; E29.1 Testicular hypofunction | CPT/HCPCS: 99212 ==

== ENCOUNTER 2024-06-17 13:02 | Outpatient (AMB) | payer MEDICARE, SELFPAY ==
--- NOTE | 2024-06-17 13:02 | A.OFFVIS_ITS ---
Intake Visit Reasons: 3m follow up Intake Note: Patient is present for 3M F/U Urology Medication:ALLOPURINOL,VITAMIN B6,SILDENAFIL,TADALAFIL,TESTOSTERONE,ALFUZOSIN Antibiotic Allergy:NONE Blood Thinner:APIXABAN Horticultural Worker Required: No Allergies No Known Allergies [No Known Allergies*] Allergy (Verified 06/17/24 13:03) HPI Comments Details: Adeline Gonzalez is a very pleasant male of [place] extraction. He is a patient of Dr Isidro. He is seen for the following urologic conditions - hypogonadism - nephrolithiasis - lower urinary tract symptoms Telemedicine Evaluation 15 min Consultation Jobulous Dolores Video Follow-up switch from Flomax to alfuzosin Tadalafil 5 mg daily with 20 on demand 40% effective Increased daily to 10 mg with 40 mg on demand Prescriptions refilled Three-month follow-up office labs Hypogonadism: Lab work stable Continue to follow. - testosterone injectable 80 mg weekly The patient presents for hypogonadism which was diagnosed years ago, and the patient reports no current symptoms. Laboratory testing has included Testosterone August 2014 446, August 2015 418 PSA 10/12 0.6 10/13 , Testosterone 247 - switch back to 2 packets per day, 11/12 , Testosterone - 6 pumps - 647, 05/15 , Testosterone 404, PSA 0.6 08/17 T 551, PSA 0.5, 02/14 T 739 PSA 0.8 02/15 T 701 PSA 0.6, 03/19 T 208 PSA 0.5, 12/18 253 0.5 42, 03/20 700 0.5 44, 09/18 T 912 P 1.0, 03/21 T920 P 1.1, 09/19 T 640, 03/22 800 0.96 48 Erectile dysfunction secondary to diabetes As responsive to daily 5 mg tadalafil and on demand Lower urinary tract symptoms Initial presentation with weakness of stream and nocturia Good response to Flomax with decreased nocturia Switch from Flomax to alfuzosin for retrograde ejaculation Nephrolithiasis/Urolithiasis: They are here for further evaluation of nephrolithiasis - minimal symptoms. Urolithiasis was diagnosed 2014. The patient previously had kidney stones whose composition w a calcium oxalate 09/15 , calcium oxalate - dihydrate 80%. Laboratory investigations include 11/11 - , Normocalcemia (9.0), Normal PTH, Normal uric acid. 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 Prior treatment(s) include 06/14 R ESWL 12/14 medical management, with allopurinol, vitamin B6. Prior imaging includes a CT (computed tomography) scan of the abdomen/pelvis (stone protocol) August 2014. 3 stones each one to 2 mm in size low pole right kidney. , an x-ray August 2015 4 mm right lower pole, 04/13 R 5mmx3 mid pole 10/13 , , a KUB x-ray 5mm right 04/14 , a KUB x-ray, showing radiodense stone(s) R >L - 6mm 07/16 KUB small fragments on right 01/13 , a renal ultrasound, showing radiodense stone(s) R>L - small each side 08/17 , a renal ultrasound bilateral small stones, right cyst 08/18 renal us - stones 5mm on right, none on left, cysts small bilateral 01/16 renal ultrasound right kidney 1.2 cm stone, left kidney 7 mm, 11/17 renal ultrasound bilateral stones similar size Current therapeutic plan will be Keep on Vit B6 PFSH Medical History Impotence Obesity HTN (hypertension) Diabetes mellitus, type II Hyperoxaluria Weak urinary stream Hypogonadism in male Erectile dysfunction Surgical History S/P panniculectomy S/P ventral herniorrhaphy S/P cardiac pacemaker procedure Hx of laparoscopic gastric banding Hx of knee surgery History of surgery Family History Mother Hypertension Diabetes Father Heart disease Diabetes Sister No problems noted. Sister No problems noted. Sister No problems noted. Sister No problems noted. Sister Diabetes Sister No problems noted. Sister Diabetes Brother No problems noted. Brother Diabetes Son No problems noted. Son No problems noted. Daughter No problems noted. Daughter No problems noted. Daughter Diabetes Social History Alcohol intake: never Patient Tobacco Use Status: Never used Tobacco Review of Systems Const All systems reviewed & are unremarkable except as noted in HPI and below Reports no additional complaints Resp Reports no additional complaints GI Reports no additional complaints Reports as per HPI Musc Reports no additional complaints Physical Exam Telemedicine evaluation Appropriate responses Regular breathing rate and rhythm HEENT Head: Yes normal to inspection Ears: hearing grossly normal bilaterally Eyes General: appearance normal, both eyes and all related structures Neck Neck: Yes normal visual inspection Chest Chest palpation & inspection: normal inspection of the chest Resp Effort & Inspection: normal respiratory effort and able to speak in complete sentences Telehealth Telehealth Telehealth Platform: Jobulous Location of provider rendering services: practice address Location of patient: address on file Patient Identification confirmed using: Name, : Yes Telehealth method: video Patient verbally consented to treatment: Yes Patient verbally consented to billing insurance company: Yes Patient informed of any privacy concerns related to visit: Yes Minutes spent on Phone/Video with Pt.: 15 Assessment & Plan Assessment & Plan (1) Nephrolithiasis: Code(s): N20.0 - Calculus of kidney Category: Medical (2) Erectile dysfunction associated with type 2 diabetes mellitus: Code(s): E11.69 - Type 2 diabetes mellitus with other specified complication; N52.1 - Erectile dysfunction due to diseases classified elsewhere Category: Medical (3) Hypogonadism in male: Code(s): E29.1 - Testicular hypofunction Category: Medical Plan Three-month follow-up lab work Orders: Orders Prostate Specific Antigen 3 Months E29.1 - Testicular hypofunction Testosterone, Total 3 Months E29.1 - Testicular hypofunction Complete Blood Count no Diff 3 Months E29.1 - Testicular hypofunction Medications: Changed From tadalafil 5 mg PO DAILY 90 days 90 tabs 1RF sexual activity E11.69 - Type 2 diabetes mellitus with other specified complication, N52.1 - Erectile dysfunction due to diseases classified elsewhere To tadalafil 10 mg PO DAILY 90 days 90 tabs 1RF sexual activity E11.69 - Type 2 diabetes mellitus with other specified complication, N52.1 - Erectile dysfunction due to diseases classified elsewhere Refilled alfuzosin ER Take before bedtime 10 mg PO BEDTIME 90 days 90 tabs 0RF N13.8 - Other obstructive and reflux uropathy, N40.1 - Benign prostatic hyperplasia with lower urinary tract symptoms, R39.12 - Poor urinary stream Patient Instructions: Imaging studies, laboratory and physical exam results were discussed and reviewed in detail. No major barriers to patient understanding were identified. An opportunity to ask questions regarding the treatment plan was provided. All questions were answered. The patient expressed understanding and agreement with the above treatment plan. The patient is aware they should contact our office by phone for worsening of their current condition or the appearance of new urologic symptoms. Compliance is encouraged with any medications and followup testing that is ordered. It is a privilege to participate in the urologic care of your patient. If you have any questions or concerns regarding treatment for the above conditions, or other urologic issues, please do not hesitate to contact me. The office telephone contact is [phone]. This note is constructed using voice recognition software. While every effort has been made to ensure accuracy watch repair technician errors may have been included. Yours sincerely, Dr Paul Macdonald MD, [facility] - Urology Providers of Expert, Compassionate Care for the Genitourinary System Coding Level of Care Code Tele Est Pt Level 4 (79069) Diagnoses Nephrolithiasis N20.0 Erectile dysfunction associated with type 2 diabetes mellitus E11.69; N52.1 Hypogonadism in male E29.1
== END 2024-06-17 13:43 | disposition home or self-care (01) ==
LOC: HO.HUSH 13:02
PROVIDERS: PCP Internal Medicine; Visit Provider Urology
DX: N20.0 Calculus of kidney (principal); E11.69 Type 2 diabetes mellitus with other specified complication; N52.1 Erectile dysfunction due to diseases classified elsewhere; E29.1 Testicular hypofunction
CPT/HCPCS: 99214

== ENCOUNTER 2024-09-09 11:41 | Outpatient (REF) | payer MEDICARE, SELFPAY ==
[2024-09-09 12:23] LABS: Hemoglobin 15.9 g/dl (14.0-18.0); Mean Corpuscular HGB Conc 33.8 g/dl (31.0-36.0); Mean Corpuscular Hemoglobin 31.4 pg (27.0-33.0); Mean Corpuscular Volume 92.7 fL (80.0-98.0); Mean Platelet Volume 9.2 fL (9.4-12.4); Platelet Count 223 X10*3/uL (160-400); Red Blood Count 5.07 X10*6/uL (4.60-5.80); Red Cell Distribution Width 13.3 % (11.0-16.0); White Blood Count 11.7 X10*3/uL (4.8-10.8)
[2024-09-09 13:13] LABS: Prostate Specific Antigen 0.83 ng/mL (<0.05-4.0)
--- OUTSIDE RECORDS SUMMARY | 2024-09-09 13:34 | XMS_ITS | Encounter Summary ---
Author Organization [facility] Address [address] [place] [address] Care Team Providers Care Diesel Engine Mechanic Apprentice Name Role Phone Glenn Isidro MD Primary Care Provider [phone] Reason for Referral * Consultation (Routine) - Authorized Specialty Diagnoses / Procedures Referred By Hugh magaña Referred To Contact Urology Diagnoses Uric acid nephrolithiasis Glenn Isidro MD [address] [place] [phone] Phone: tel: fax: Paul Macdonald MD [address] [place] [phone] Phone: tel: Referral ID Status Reason Start Date Expiration Date Visits Requested Visits Authorized [id number] Authorized Specialty Services Required 09/05/2024 09/05/2025 6 6 Reason for Visit * Reason Onset Date Comments Referral 08/29/2024 Fax requesting a n insurance referral - urology Encounter Details Date Type Department Care Team (Late st Contact Info) Description 08/29/2024 Telephone Adult Medicine [address] [phone] Glenn Isidro MD [address] [place] [phone] Referral (Fax requesting an insurance referral - urology) Social History Tobacco Use Types Packs/Day Years Used Date Smoking Tobacco: Never Smokeless Tobacco: Never Alcohol Use Standard Drinks/Week Comments Not Currently 0 (1 standard drink = 0.6 oz pur e alcohol) Sex and Gender Information Value Date Recorded Sex Assigned at Not on file Legal Sex Male 9:42 AM EST Gender Identity Not on file Sexual Orientation Not on file documented as of this encounter Progress Notes * Ruby Sánchez RN - 09/02/2024 8:38 AM EST Noted. * Glenn Isidro MD - 09/01/2024 6:30 PM EST Referral signed * Nessa Ma - 08/29/2024 4:31 PM EST Fax rec'd requesting an ins referral Caller: Fax Office: [facility] Urology Specialty: urology Insurance: [employer] ID: [id number] Provider: Paul Macdonald DOS: 09/16/24 Visits: 10 Dx code: N20.0 Pls create an order with the above information so that I may process it through the pts insurance. Thank you IMPORTANT Pls copy and paste the above info into the order. Otherwise, it will not be processed as an ins referral documented in this encounter Plan of Treatment Upcoming Encounters Date Type Department Care Team (Late st Contact Info) Description 10/10/2024 1:15 PM EDT Office Visit Adult Medicine [address] [phone] Glenn Isidro MD [address] [place] [phone] 04/20/2025 1:30 PM EDT Office Visit [facility] [address] [place] [address] Carley Alonzo MD [address] [place] [address] [address] [place] [address] 07/24/2025 1:30 PM EST Ancillary Procedure [facility] [address] [place] [address] Scheduled Referrals Name Type Priority Associated Diagnoses Orde r Schedule Ambulatory referral to Urology Outpatient Referral Routine Uric acid nephrolithiasis Expected: 09/16/2024, Expires: 08/31/2025 documented as of this encounter Visit Diagnoses Diagnosis Uric acid nephrolithiasis- Primary Encounter for adjustment or management of cardiac device documented in this encounter Care Teams Diesel Engine Mechanic Apprentice Relationship Specialty Start Date End Date Glenn Isidro MD [address] [place] [phone] PCP - General Internal Medicine 08/03/24 documented as of this encounter
--- OUTSIDE RECORDS SUMMARY | 2024-09-09 13:34 | XMS_ITS | Clinical Summary ---
Author Organization [facility] Address [address] [place] [address] Phone Care Team Providers Care Rope Silica Machine Operator Name Role Phone Glenn Isidro MD Primary Care Provider [phone] Allergies No known active allergies Medications loratadine (CLARITIN) 10 mg tablet TAKE 1 TABLET BY MOUTH DAILY 90 tablet 1 4 Active metFORMIN (FORTAMET) 1,000 mg 24 hr tablet Take 1 tablet (1,000 mg total) by mouth 1 (one) time each day. 4 Active atorvastatin (LIPITOR) 40 mg tablet Take 1 tablet (40 mg total) by mouth at bedtime. 4 Active TESTOSTERONE IM Inject 12 mg into the shoulder, thigh, or buttocks 1 (one) time per week. Active Eliquis 5 mg tablet Take 1 tablet (5 mg total) by mouth 2 (two) times a day. 4 Active cholecalciferol (VITAMIN D-3) 50 mcg (2,000 unit) tablet Take 1 tablet (2,000 Units total) by mouth 1 (one) time each day. 4 Active ferrous sulfate 325 mg (65 mg elemental iron) tablet Take 1 tablet (325 mg total) by mouth 1 (one) time each day. 4 Active blood sugar diagnostic (OneTouch Verio test strips) test strip Inject 1 Lancet into the skin 3 (three) times a day. 4 Active lancets (OneTouch Delica Plus Lancet) 30 gauge 1 each by Not Applicable route 3 (three) times a day. 3 Active blood-glucose meter (ACCU-CHEK PEPE [facility]) To test sugars 3x a day. 1 Active allopurinoL (ZYLOPRIM) 100 mg tablet Take 1 tablet (100 mg total) by mouth 1 (one) time each day. Active VITAMIN B COMPLEX ORAL Take by mouth 1 (one) time each day. Active docosahexaenoic acid/epa (FISH OIL ORAL) 1 (one) time each day. Active pyridoxine (B-6) 100 mg tablet Take 1 tablet (100 mg total) by mouth 1 (one) time each day. Active losartan (COZAAR) 100 mg tablet TAKE 1 TABLET BY MOUTH DAILY 90 tablet 1 4 Active glipiZIDE (GLUCOTROL XL) 2.5 mg 24 hr tablet TAKE 1 TABLET BY MOUTH DAILY 90 tablet 1 4 Active metoprolol succinate (TOPROL-XL) 25 mg 24 hr tablet TAKE 1 TABLET BY MOUTH DAILY 90 tablet 1 4 Active omeprazole (PriLOSEC) [address] capsuleIndicatio ns:Gastroesophag eal reflux disease without esophagitis TAKE 1 CAPSULE BY MOUTH DAILY 90 capsule 3 5 Active coenzyme Q10 400 mg capsule Take 400 mg by mouth 1 (one) time each day. Active tamsulosin (FLOMAX) 0.4 mg 24 hr capsule Take 1 capsule (0.4 mg total) by mouth 1 (one) time each day with breakfast. Capsules should be taken 30 minutes following the same meal each day. Active magnesium glycinate 100 mg magnesium capsule Take 100 mg (1 capsule total) by mouth 1 (one) time each day. Active vitamin E acetate (VITAMIN E ORAL) Take 180 Units by mouth 1 (one) time each day. Active Active Problems Problem Noted Date Diagnosed Date Essential hypertension, benign 05/24/2024 Overview (05/24/2024): Last Assessment & Plan: Patient's blood pressure is under excellent control with a reading today of 130/80. He continues on metoprolol and losartan. Tachycardia-bradycardia syndrome 03/13/2023 Overview (05/24/2024): Last Assessment & Plan: Patient has history of tachybradycardia syndrome status post pacemaker implantation. No recent cardiac rhythm abnormalities were identified. Primary osteoarthritis of both knees 10/21/2021 Gastroesophageal reflux disease 08/29/2019 Atrial fibrillation 08/18/2019 Overview (05/24/2024): Last Assessment & Plan: Patient has history of atrial fibrillation and continues on anticoagulation with Eliquis 5 mg twice daily. He is appropriately rate controlled on metoprolol 25 mg daily. PLMD (periodic limb movement disorder) 0 Microalbuminuria 06/02/2019 Patellofemoral arthritis of left knee 03/22/2019 Primary osteoarthritis of left knee 03/22/2019 Type 2 diabetes, controlled, with renal manifest ation 05/29/2015 Renal cysts, acquired, bilateral 10/02/2014 Overview (05/24/2024): Follows with Dr. Shields Renal stone 08/18/2014 Sebaceous cyst 05/10/2012 Obstructive sleep apnea 02/19/2012 Overview (05/24/2024): [facility] Polysomnogram: Date 07/16/2019; Wt 268#; BMI 38; SE 43%; SM 47%; REM 17%; RDI 18 (AHI 16), REM (RDI 49 - AHI 47), Central apneas 0; Obstructive apneas 11; Mixed apneas 0; hypopneas 44; RERAs 8; average oxygen saturation 95% (lowest 80% - without saturations <88% for 5% or more of study); PLMs 75. Prestudy ESS 17; 3/4 RLS symptoms. - Obstructive Sleep Apnea - moderate overall and severe in REM; mostly hypopneas with obstructive apneas; without sleep related hypoventilation by 2019 polysomnogram. Morbid obesity with BMI of 40.0-44.9, adult Encounters Date Type Department Care Team Description 08/29/2024 Telephone Adult Medicine [address] [address] Glenn Isidro MD Referral (Fax requesting an insurance referral - urology) 08/26/2024 10:40 AM EST Office Visit [facility] Cardiology [facility] [address] [place] [address] Yumiko Tejada NP Atrial fibrillation, unspecified type (CMS/HCC) (Primary Dx); Tachycardia-bradycar vinnie syndrome (CMS/HCC); Essential hypertension, benign; Obstructive sleep apnea; Hypertension, unspecified type 08/02/2024 5:25 PM EST Ancillary Procedure [facility] Cardiology [facility] [address] [place] [address] 07/21/2024 2:30 PM EST Ancillary Procedure [facility] [address] [place] [address] Encounter for adjustment or management of cardiac device 07/21/[address] [facility] [address] [place] [address] Madai Ames MA from Last 3 Months Immunizations Name Administration Dates Next Due DTaP, Unspecified 09/25/2000 Hepatitis B (Odgbqtd-T-Kvfln , Recombivax HB-Adult) 19yo and older 01/04/2001 Influenza Quadravalent, MDCK , 0.5ml, with preservative (Flucelvax) 6mo and older 06/18/2017 Influenza trivalent, 0.5mL ( Fluad) 65yo and older 03/05/2022,03/18/2018 Influenza trivalent, 0.5mL, preservative free (Fluarix; FluLaval; Fluzone) ages 6mo and older (Afluria) 3 years and older 04/01/2016,05/29/2015,04/28/2012,06/19 MMR, measles mumps and rubel la Live (Priorix; M-M-R II) 12mo and older 01/04/2001,09/25/2000 Pneumococcal conjugate 20 va lent (Prevnar 20, PCV 20) 2mo and older 10/05/2023 Pneumococcal polysaccharide 23 valent (Pneumovax 23) 2yo and older 11/11/2013 Tdap Tetanus diptheria acell ular pertussis (Boostrix; Adacel) 7yo and older 06/19/2011 Surgical History Surgery Date Site/Laterality Comments KNEE ARTHROSCOPY Left PROCEDURE: [place] ARTHROSCOPY AID [place] SPINE&/FX KNEE W/O FIXJ; COMMENT: -2003 LAPAROSCOPIC GASTRIC BANDING 2007 PROCEDURE: LAP ADJUSTABLE GASTRIC BAND COLONOSCOPY 02/07/2014 PROCEDURE: HISTORICAL COLONOSCOPY; COMMENT: tics and hemorrhoids; repeat in ten yrs OTHER SURGICAL HISTORY 2010 PROCEDURE: [place] UNLISTED PX ABDOMEN MUSCULOSKELETAL SYSTEM; COMMENT: abdominoplasty HERNIA REPAIR PROCEDURE: [place] RPR 1ST INGUN HRNA AGE 6 MO-5 YRS REDUCIBLE Medical History Medical History Date Comments Essential hypertension, benign D X:Essential hypertension, benign Type II or unspecified type diabetes mellitus with unspecified complication, not stated as uncontrolled DX:Type II or unspecified t ype diabetes mellitus with unspecified complication, not stated as uncontrolled Gastroesophageal reflux disease 08/29/2019 DX:Gastroesophageal reflux disease Hyperlipidemia DX:Hyperlipidemi a Family History Medical History Relation Name Comments Diabetes Brother Diabetes Father Heart attack Father Cataracts Mother Diabetes Mother Glaucoma Mother Diabetes Sister x2 Diabetes Son Blindness Neg Hx Macular degeneration Neg Hx Strabismus Neg Hx Relation Name Status Comments Brother Father Mother Sister Son Social History Tobacco Use Types Packs/Day Years Used Date Smoking Tobacco: Never Smokeless Tobacco: Never Alcohol Use Standard Drinks/Week Comments Not Currently 0 (1 standard drink = 0.6 oz pur e alcohol) Sex and Gender Information Value Date Recorded Sex Assigned at Not on file Legal Sex Male 9:42 AM EST Gender Identity Not on file Sexual Orientation Not on file Obstetrics History Last Filed Vital Signs Vital Sign Reading Time Taken Comments Blood Pressure 138/80 08/26/2024 10:46 AM EST Pulse 89 08/26/2024 10:46 AM EST Temperature - - Respiratory Rate - - Oxygen Saturation 98% 08/26/2024 10:46 AM EST Inhaled Oxygen Concentration - - Weight 125 kg (275 lb) 08/26/2024 10:46 AM EST Height 176.5 cm (5' 9.5 ) 08/26/2024 10:46 AM ES T Body Mass Index 40.03 08/26/2024 10:46 AM EST Plan of Treatment Upcoming Encounters Date Type Department Care Team (Late st Contact Info) Description 10/10/2024 1:15 PM EDT Office Visit Adult Medicine [facility] [address] [place] [address] Glenn Isidro MD [address] [place] [address] 04/20/2025 1:30 PM EDT Office Visit [facility] [address] [place] [address] Carley Alonzo MD [address] [place] [address] [address] [place] [address] 07/24/2025 1:30 PM EST Ancillary Procedure [facility] Cardiology [facility] [address] [facility] [address] [place] [phone] Health Maintenance Due Date Last Done Comments Diabetes: Annual Foot Exam 1961 Hepatitis B Vaccines (2 of 3 - 19+ 3-dose series) 02/01/2001 01/04/2001 RSV Immunization Patients 60+ Years Old (1 - Risk 60-74 years 1-dose series) 2011 DTaP,Tdap,and Td Vaccines (3 - Td or Tdap) 06/19/2021 06/19/2011, 09/25/2000, 09/25/2000 Depression Screening 06/07/2022 Falls Risk Assessment 06/07/2022 Hepatitis C Screening 06/07/2022 Medicare Annual Wellness Visit 06/07/2022 Social Influencers of Health Screening 06/07/2022 Colorectal Cancer Screening: Colonoscopy 02/08/2024 02/07/2014 Diabetes: Blood Sugar Control Test (HGBA1C) 10/03/2024 04/04/2024, 04/04/2024 Diabetes: Annual Urine Albumin-Creatinine Ratio (uACR) 04/04/2025 04/04/2024 Diabetes: Annual GFR (Glomerular Filtration Rate) 04/04/2025 04/04/2024, 04/04/2024 Hypertension/CHF/CAD Annual BMP Blood Test 04/04/2025 04/04/2024, 04/04/2024 Diabetes: Annual Retina Eye Exam 06/15/2025 06/15/2024, 05/16/2024 Cholesterol Screening (Lipid Panel) 04/04/2029 04/04/2024, 04/04/2024 MMR Vaccines Aged Out 01/04/2001, 09/25/2000 No lo nger eligible based on patient's age to complete this topic Pneumococcal Vaccine: 50+ Years Completed 10/05/2023, 08/12/2019, 11/11/2013 COVID-19 Vaccine Completed 02/24/2024, 10/2022, 11/04/2022, Additional history exists Influenza Vaccine Completed 02/24/2024, , 03/05/2022, Additional history exists Zoster Vaccines Completed 04/26/2024, 02/24/2024 HIB Vaccines Aged Out No longer eligi ble based on patient's age to complete this topic HPV Vaccines Aged Out No longer eligi ble based on patient's age to complete this topic Hepatitis A Vaccines Aged Out No long er eligible based on patient's age to complete this topic IPV Vaccines Aged Out No longer eligi ble based on patient's age to complete this topic Meningococcal ACWY Vaccine Aged Out N o longer eligible based on patient's age to complete this topic Meningococcal B Vacine Aged Out No lo nger eligible based on patient's age to complete this topic RSV Immunization Patients Under 20 months Aged Out No longer eligible based on patient's age to complete this topic Varicella Vaccines Aged Out No longer eligible based on patient's age to complete this topic Medical Devices Implanted Type Area Cleaning Supervisor Device Identifier Shelf Expiration Date Model / Serial / Lot Medt-Card Radha Xt Dr Almendarez [id number] Implanted: (Quantity not on file) Cardiac Pacemaker [employer] - CARDIAC RHYTH-CRDM RADHA XT DR ALMENDAREZ / [id number] / Medt-Card Moriches Xt Dr Almendarez [id number] Implanted: (Quantity not on file) Cardiac Pacemaker [employer] - CARDIAC RHYTH-CRDM RAHDA XT DR ALMENDAREZ [id number] / [id number] / Procedures Procedure Name Priority Date/Time Associated Diagnosis Comments CARDIAC DEVICE CHECK- REMOTE- MURJ Routine 08/02/2024 5:20 PM EST CARDIAC DEVICE CHECK- IN CLINIC- MURJ Routine 07/21/2024 2:34 PM EST Encounter for adjustment or management of cardiac device EXTERNAL DIABETIC RETINA EYE EXAM 06/15/2024 URINE ALBUMIN CREATININE RATIO Routine 04/04/2024 ANNUAL BMP BLOOD TEST Routine 04/04/2024 HEMOGLOBIN A1C Routine 04/04/2024 LIPID PANEL Routine 04/04/2024 COLONOSCOPY Routine 02/07/2014 from Last 3 Months or Most Recently Relevant to Health Maintenance Results * Cardiac device check - Remote- MURJ (08/02/2024 5:20 PM EST) Date Time Interrogation Session [id number] CV DEVICE CHECK Type Interrogation Session Remote CV DEVICE CHECK Implantable Pulse Generator Cleaning Supervisor MDT CV DEVICE CHECK Implantable Pulse Generator Type IPG CV DEVICE CHECK Implantable Pulse Generator Model Radha XT DR MRI [id number] CV DEVICE CHECK Implantable Pulse Generator Serial Number [id number] CV DEVICE CHECK Implantable Pulse Generator Implant Date 20190620 CV DEVICE CHECK Battery Remaining Longevity 118.0 CV DEVICE CHECK Battery Voltage 3.000 CV D EVICE CHECK Battery SPICE MILLER HAMMER MILL Trigger 2.625 CV DEVICE CHECK Battery Status Middle of Service CV DEVICE CHECK Farhad Statistic RA Percent Paced 10.70 CV DEVICE CHECK Farhad Statistic RV Percent Paced 0.03 CV DEVICE CHECK Atrial Tachy Statistic AT/AF [place] Percent 0.00 CV DEVICE CHECK Lead Channel Sensing Intrinsic Amplitude 3.375 CV DEVICE CHECK Lead Channel Setting Sensing Sensitivity 0.30 CV DEVICE CHECK Lead Channel Impedance Value 399 CV DEVICE CHECK Lead Channel Pacing Threshold Amplitude 0.625 CV DEVICE CHECK Lead Channel Pacing Threshold Pulse Width 0.4 CV DEVICE CHECK Lead Channel RA Pacing Threshold Date 2024-07-23 CV DEVICE CHECK Lead Channel Setting Pacing Amplitude 1.500 CV DEVICE CHECK Lead Channel Setting Pacing Pulse Width 0.4 CV DEVICE CHECK Lead Channel Sensing Intrinsic Amplitude 6.125 CV DEVICE CHECK Lead Channel Setting Sensing Sensitivity 0.90 CV DEVICE CHECK Lead Channel Impedance Value 418 CV DEVICE CHECK Lead Channel Pacing Threshold Amplitude 0.500 CV DEVICE CHECK Lead Channel Pacing Threshold Pulse Width 0.4 CV DEVICE CHECK Lead Channel RV Pacing Threshold Date 2024-07-23 CV DEVICE CHECK Lead Channel Setting Pacing Amplitude 2.000 CV DEVICE CHECK Lead Channel Setting Pacing Pulse Width 0.4 CV DEVICE CHECK Farhad Setting Mode (NBG Code) AAI<=>DDD CV DEVICE CHECK Farhad Setting Lower Rate Limit 60 CV DEVICE CHECK Farhad Setting AT Mode Switch Rate 171 CV DEVICE CHECK Farhad Setting Maximum Tracking Rate 130 CV DEVICE CHECK Farhad Setting Maximum Sensor Rate 130 CV DEVICE CHECK Farhad Setting PAV Delay 180 CV DEVICE CHECK Farhad Setting VENICE Delay 150 CV DEVICE CHECK Zone Setting Type Category AT/AF CV DEVICE CHECK Rate 171 CV DEVICE CHECK Therapies Some Rx Off CV DEVIC E CHECK Zone Setting Status Monitor CV DEVICE CHECK Zone ID 2 CV DEVICE CHECK Zone Setting Type Category VT CV DEVICE CHECK Rate 150 CV DEVICE CHECK Zone Setting Status ENABLED CV DEVICE CHECK Zone ID 6 CV DEVICE CHECK Date of Service 2024-08-05 CV DEVICE CHECK Anatomical Region Laterality Modality Device Interroga tion 07/23/2024 9:39 PM EST Impressions 08/02/2024 12:59 PM EST Normal Remote: No Events * Normal Device Function * Alerts or events: None * Battery: OK, 9.83 yrs * Sensing, impedance and thresholds reviewed * Programmed parameters reviewed * Presenting rhythm reviewed * Heart Rate Histograms reviewed * No significant changes noted Narrative Procedure Note Pal Vicente MD - 08/02/2024 IMPRESSION: Normal Remote: No Events * Normal Device Function * Alerts or events: None * Battery: OK, 9.83 yrs * Sensing, impedance and thresholds reviewed * Programmed parameters reviewed * Presenting rhythm reviewed * Heart Rate Histograms reviewed * No significant changes noted Pal Vicente MD CV IMPLANTABLE CARDIAC DEV ICE PROCEDURES Final Result * CARDIAC DEVICE CHECK- [facility] [place] (07/21/2024 2:34 PM EST) Date Time Interrogation Session [id number] CV DEVICE CHECK Implantable Pulse Generator Cleaning Supervisor TRISTON CV DEVICE CHECK Implantable Pulse Generator Type IPG CV DEVICE CHECK Implantable Pulse Generator Model Radha XT DR ALMENDAREZ CV DEVICE CHECK Implantable Pulse Generator Serial Number [id number] CV DEVICE CHECK Implantable Pulse Generator Implant Date [id number] CV DEVICE CHECK Battery Status Middle of Service CV DEVICE CHECK Farhad Statistic RA Percent Paced 12.80 CV DEVICE CHECK Farhad Statistic RV Percent Paced 0.10 CV DEVICE CHECK Atrial Tachy Statistic AT/AF [place] Percent 0.10 CV DEVICE CHECK Lead Channel Sensing Intrinsic Amplitude 3.900 CV DEVICE CHECK Lead Channel Setting Sensing Sensitivity 0.30 CV DEVICE CHECK Lead Channel Impedance Value 399 CV DEVICE CHECK Lead Channel Pacing Threshold Amplitude 0.630 CV DEVICE CHECK Lead Channel Pacing Threshold Pulse Width 0.4 CV DEVICE CHECK Lead Channel RA Pacing Threshold Date 2024-07-21 CV DEVICE CHECK Lead Channel Setting Pacing Amplitude 1.500 CV DEVICE CHECK Lead Channel Setting Pacing Pulse Width 0.4 CV DEVICE CHECK Lead Channel Sensing Intrinsic Amplitude 5.600 CV DEVICE CHECK Lead Channel Setting Sensing Sensitivity 0.90 CV DEVICE CHECK Lead Channel Impedance Value 418 CV DEVICE CHECK Lead Channel Pacing Threshold Amplitude 0.500 CV DEVICE CHECK Lead Channel Pacing Threshold Pulse Width 0.4 CV DEVICE CHECK Lead Channel RV Pacing Threshold Date 2024-07-21 CV DEVICE CHECK Lead Channel Setting Pacing Amplitude 2.000 CV DEVICE CHECK Lead Channel Setting Pacing Pulse Width 0.4 CV DEVICE CHECK Farhad Setting Mode (NBG Code) AAI<=>DDD CV DEVICE CHECK Farhad Setting Lower Rate Limit 60 CV DEVICE CHECK Farhad Setting AT Mode Switch Rate 171 CV DEVICE CHECK Farhad Setting Maximum Tracking Rate 130 CV DEVICE CHECK Farhad Setting Maximum Sensor Rate 130 CV DEVICE CHECK Zone Setting Type Category AT/AF CV DEVICE CHECK Therapies All Rx Off CV DEVICE CHECK Zone Setting Status Monitor CV DEVICE CHECK Zone ID 2 CV DEVICE CHECK Zone Setting Type Category VT CV DEVICE CHECK Zone Setting Status Monitor CV DEVICE CHECK Zone ID 5 CV DEVICE CHECK Date of Service 2024-07-21 CV DEVICE CHECK Anatomical Region Laterality Modality Device Interroga tion 07/21/2024 Impressions 08/02/2024 12:59 PM EST Normal In-Office: With Events * Normal Device Function * Events or Alerts: 2, One EGM suggestive of VT, 19-beats on 07/05/2024 and one 2 second episode of AT on 05/24/2024, patient states he had no memory of anything out of the normal occurring during the VT episode. * Battery: MOS, 9.8 years * Sensing, impedance and thresholds reviewed and tested * Presenting Rhythm: -VS 98 bpm * Heart Rate Histograms reviewed * Pacing and Detection Parameters were evaluated Narrative Procedure Note Pal Vicente MD - 08/02/2024 IMPRESSION: Normal In-Office: With Events * Normal Device Function * Events or Alerts: 2, One EGM suggestive of VT, 19-beats on 07/05/2024 andone 2 second episode of AT on 05/24/2024, patient states he had no memoryof anything out of the normal occurring during the VT episode. * Battery: MOS, 9.8 years * Sensing, impedance and thresholds reviewed and tested * Presenting Rhythm: -VS 98 bpm * Heart Rate Histograms reviewed * Pacing and Detection Parameters were evaluated us Order Referral Cardiovascular CV IMPLANTABLE CAR DIAC DEVICE PROCEDURES Final Result * External Diabetic Retina Eye Exam Report (06/15/2024) Anatomical Region Laterality Modality Ultrasound Provider Onbase IMG US PROCEDURES Final Resul t * Urine Albumin Creatinine Ratio (04/04/2024) Pathologist [facility] Urine Albumin Creatinine Ratio Abstracted Result [facility] Provider HEALTH MAINTENANCE Final Result * Annual BMP Blood Test (04/04/2024) [facility] Annual BMP Blood Test Abstracted Result [facility] Provider HEALTH MAINTENANCE Final Result * Hemoglobin A1c (04/04/2024) [facility] Hemoglobin A1C 6.1 <=6.5 % Blood Venous blood specimen / Unknown Result [facility] Provider LAB BLOOD ORDERABLES Julia l Result * Lipid panel (04/04/2024) [facility] LDL/HDL Ratio 2 0 - 4 Triglycerides 60 0 - 150 mg/dL Cholesterol 107 0 - 200 mg/dL HDL 60 >=40 mg/dL LDL Cholesterol 35 0 - 100 mg/dL Blood Venous blood specimen / Unknown Result [facility] Provider LAB BLOOD ORDERABLES Julia l Result * Colonoscopy (02/07/2014) Colonoscopy No Interpretation , Abstracted Anatomical Region Laterality Modality Other us Historical Provider MD HEALTH MAINTENANCE Final Result from Last 3 Months or Most Recently Relevant to Health Maintenance Insurance [employer] Advance Directives Documents on File Type Date Recorded 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 Health Care Decision (hx) 09/05/2023 AD VERA DIRECTIVE Health Care Decision (hx) 09/05/2023 AD VERA DIRECTIVE Health Care Decision (hx) 09/05/2023 AD VERA DIRECTIVE Health Care Decision (hx) 09/05/2023 AD VERA DIRECTIVE Health Care Decision (hx) 09/05/2023 AD VERA DIRECTIVE Health Care Decision (hx) 09/05/2023 AD VERA DIRECTIVE Health Care Decision (hx) 09/05/2023 AD VERA DIRECTIVE Health Care Decision (hx) 09/05/2023 AD VERA DIRECTIVE Health Care Decision (hx) 09/05/2023 AD VERA DIRECTIVE Health Care Decision (hx) 09/05/2023 AD VERA DIRECTIVE Health Care Decision (hx) 05/19/2022 AD VERA DIRECTIVE Health Care Decision (hx) 05/13/2022 HE ALTH CARE PROXY Health Care Decision (hx) 05/13/2022 HE ALTH CARE PROXY Health Care Decision (hx) 05/13/2022 HE ALTH CARE PROXY Health Care Decision (hx) 05/13/2022 HE ALTH CARE PROXY Health Care Decision (hx) 05/13/2022 HE ALTH CARE PROXY Health Care Decision (hx) 05/13/2022 HE ALTH CARE PROXY Health Care Decision (hx) 05/13/2022 HE ALTH CARE PROXY Health Care Decision (hx) 05/13/2022 HE ALTH CARE PROXY Health Care Decision (hx) 05/13/2022 HE ALTH CARE PROXY Health Care Decision (hx) 05/13/2022 HE ALTH CARE PROXY Health Care Decision (hx) 05/13/2022 HE ALTH CARE PROXY Health Care Decision (hx) 05/13/2022 HE ALTH CARE PROXY Health Care Decision (hx) 05/13/2022 HE ALTH CARE PROXY Health Care Decision (hx) 05/13/2022 HE ALTH CARE PROXY Health Care Decision (hx) 05/13/2022 HE ALTH CARE PROXY Health Care Decision (hx) 05/13/2022 HE ALTH CARE PROXY Health Care Decision (hx) 05/13/2022 HE ALTH CARE PROXY Health Care Decision (hx) 05/13/2022 HE ALTH CARE PROXY Care Teams Rope Silica Machine Operator Relationship Specialty Start Date End Date Glenn Isidro MD [address] [place] [id number] PCP - General Internal Medicine 08/03/24
--- OUTSIDE RECORDS SUMMARY | 2024-09-09 13:34 | XMS_ITS | Clinical Summary ---
Author Organization [facility] Facility Address [address] [place] [address] Care Team Providers Care Envelope Sealer Operator Name Role Phone Glenn Isidro MD Primary Care Provider [phone] Social History Tobacco Use Types Packs/Day Years Used Date Smoking Tobacco: Never Assessed Sex and Gender Information Value Date Recorded Sex Assigned at Not on file Legal Sex Male 8:27 AM EST Gender Identity Not on file Sexual Orientation Not on file Plan of Treatment Health Maintenance Due Date Last Done Comments Colorectal Cancer Screening: Annual FOBT 2000 Colorectal Cancer Screening: Colonoscopy 2000 Colorectal Cancer Screening: Sigmoidoscopy 2000 Pneumococcal Vaccine: 65+ Ye ars (1 of 1 - PCV) 2016 Influenza Vaccine (#1) 2024 Hepatitis B Vaccine Aged Out No longe r eligible based on patient's age to complete this topic [place] [place] [address] MEDICARE [employer] Care Teams Envelope Sealer Operator Relationship Specialty Start Date End Date Glenn Isidro MD PCP - General Internal Medicine 08/31/23
--- OUTSIDE RECORDS SUMMARY | 2024-09-09 13:34 | XMS_ITS | Encounter Summary ---
Author Organization [employer] Address [address] [place] [address] Care Team Providers Care Pepper Cutter Name Role Phone Glenn Isidro MD Primary Care Provider [phone] Reason for Visit * Reason Comments Follow-up * Other Medical (Routine) - Authorized Specialty Diagnoses / Procedures Referred By Contac t Referred To Contact Diagnoses [Dx: VT on PPM, F/U PER AB,SUBHA/SLO pt,anthony 03/16/24 w/SUBHA] 08/02/24 Apt bk'd w/pt per task, ltr sent [facility] M Procedures OFFICE VISIT Glenn Isidro MD [address] [place] [id number] Phone: tel: fax: Cardiology, [facility] Referral ID Status Reason Start Date Expiration Date V isits Requested Visits Authorized [id number] Authorized 03/01/2024 03/01/2025 5 5 Encounter Details Date Type Department Care Team (Late st Contact Info) Description 08/26/2024 10:40 AM EST Office Visit [facility] [place] [address] Yumiko Tejada NP [address] [place] [address] [place] [address] Atrial fibrillation, unspecified type (CMS/HCC) (Primary Dx); Tachycardia-bradycard ia syndrome (CMS/HCC); Essential hypertension, benign; Obstructive sleep apnea; Hypertension, unspecified type Social History Tobacco Use Types Packs/Day Years [...] on file documented as of this encounter Last Filed Vital Signs Vital Sign Reading [...] Mass Index 40.03 08/26/2024 10:46 AM EST documented in this encounter Progress Notes * Yumiko Tejada NP - 08/26/2024 10:40 AM EST Images from the original note were not included. [facility] PRIMARY GEOLOGY TECHNICIAN: Carley Alonzo MD PCP: Glenn Isidro MD HPI: Lisa Lr is a 74 y.o. old male with known history of tachybradycardia syndrome and paroxysmal atrial fibrillation along with sleep apnea, HTN, Type II DM and obesity. He is currently on Eliquis. He had a permanent pacemaker placement considering prolonged history of pauses while being in the hospital. His cardiac catheterization was showed only mild coronary artery disease (2019). Echocardiogram completed August 2023 revealing the LV size and function appears to be normal, LVEF of around 65%. RV size and function appears to be normal. Both atria are grossly normal. No obvious valvular abnormalities were noted the tricuspid valve and the pulmonic valves were not well-visualized. Last device check July 2024 showing no alerts or events, normal device function, battery at 9.83 years. History of Present Illness The patient presents for cardiac follow-up. He reports he has been feeling well, he reports no chest discomfort or shortness of breath. He alsodoes not experience palpitations, dizziness, lightheadedness, syncope, or lower extremity edema. His physical activity includes walking around his property [employer] [facility] company, during which he does not experience any chest discomfort. He does not engage in brisk walking. He reports no abnormal bleedi ng, such as blood in stool or urine, while on Eliquis. He does not monitor his blood pressure at home, but it typically reads in the range of 130s over 80s during office visits. He has a history of mild coronary artery disease, confirmed by a previous catheterization. He has a history of sleep apnea and uses a CPAP machine nightly. Results Laboratory Studies Most recent LDL cholesterol is 35. ACTIVE MEDICATIONS: Outpatient Medications Marked as Taking for the 08/26/24 encounter (Office Visit) with Yumiko Tejada NP Medication Sig Dispense Refill allopurinoL (ZYLOPRIM) 100 mg tablet Take 1 tablet (100 mg total) by mouth 1 (one) time each day. atorvastatin (LIPITOR) 40 mg tablet Take 1 tablet (40 mg total) by mouth at bedtime. blood sugar diagnostic (OneTouch Verio test strips) test strip Inject 1 Lancet into the skin 3 (three) times a day. blood-glucose meter (ACCU-CHEK PEPE PLUS METER [facility]) To test sugars 3x a day. cholecalciferol (VITAMIN D-3) 50 mcg (2,000 unit) tablet Take 1 tablet (2,000 Units total) by mouth1 (one) time each day. coenzyme Q10 400 mg capsule Take 400 mg by mouth 1 (one) time each day. docosahexaenoic acid/epa (FISH OIL ORAL) 1 (one) time each day. Eliquis 5 mg tablet Take 1 tablet (5 mg total) by mouth 2 (two) times a day. ferrous sulfate 325 mg (65 mg elemental iron) tablet Take 1 tablet (325 mg total) by mouth 1 (one) time each day. glipiZIDE (GLUCOTROL XL) 2.5 mg 24 hr tablet TAKE 1 TABLET BY MOUTH DAILY 90 tablet 1 lancets (OneTouch Delica Plus Lancet) 30 gauge 1 each by Not Applicable route 3 (three) times a day. loratadine (CLARITIN) 10 mg tablet TAKE 1 TABLET BY MOUTH DAILY 90 tablet 1 losartan (COZAAR) 100 mg tablet TAKE 1 TABLET BY MOUTH DAILY 90 tablet 1 magnesium glycinate 100 mg magnesium capsule Take 100 mg (1 capsule total) by mouth 1 (one) time each day. metFORMIN (FORTAMET) 1,000 mg 24 hr tablet Take 1 tablet (1,000 mg total) by mouth 1 (one) time each day. metoprolol succinate (TOPROL-XL) 25 mg 24 hr tablet TAKE 1 TABLET BY MOUTH DAILY 90 tablet 1 omeprazole (PriLOSEC) [address] capsule TAKE 1 CAPSULE BY MOUTH DAILY 90 capsule 3 pyridoxine (B-6) 100 mg tablet Take 1 tablet (100 mg total) by mouth 1 (one) time each day. tamsulosin (FLOMAX) 0.4 mg 24 hr capsule Take 1 capsule (0.4 mg total) by mouth 1 (one) time each day with breakfast. Capsules should be taken 30 minutes following the same meal each day. TESTOSTERONE IM Inject 12 mg into the shoulder, thigh, or buttocks 1 (one) time per week. VITAMIN B COMPLEX ORAL Take by mouth 1 (one) time each day. vitamin E acetate (VITAMIN E ORAL) Take 180 Units by mouth 1 (one) time each day. PAST MEDICAL HISTORY: Patient Active Problem List Diagnosis Essential hypertension, benign Obstructive sleep apnea Sebaceous cyst Renal stone Renal cysts, acquired, bilateral Type 2 diabetes, controlled, with renal manifestation (CMS/HCC) Patellofemoral arthritis of left knee Primary osteoarthritis of left knee Microalbuminuria PLMD (periodic limb movement disorder) Atrial fibrillation (CMS/HCC) Gastroesophageal reflux disease Primary osteoarthritis of both knees Tachycardia-bradycardia syndrome (CMS/HCC) Morbid obesity with BMI of 40.0-44.9, adult (CMS/HCC) ALLERGIES: No Known Allergies SOCIAL HISTORY: Social History Tobacco Use Smoking status: Never Smokeless tobacco: Never Substance Use Topics Alcohol use: Not Currently PHYSICAL EXAM: Vitals: 08/26/24 1046 BP: 138/80 BP Location: Left arm Patient Position: Sitting BP Cuff Size: Large adult Pulse: 89 SpO2: 98% Weight: 125 kg (275 lb) Height: 1.765 m (69.5 ) Physical Exam Constitutional: General: He is awake. He is not in acute distress. Appearance: He is well-developed. He is obese. He is not diaphoretic. HENT: Head: Normocephalic. Eyes: Pupils: Pupils are equal, round, and reactive to light. Neck: Vascular: No carotid bruit, hepatojugular reflux or JVD. Cardiovascular: Rate and Rhythm: Normal rate and regular rhythm. Pulses: Normal pulses and intact distal pulses. Heart sounds: Normal heart sounds, S1 normal and S2 normal. No murmur heard. Pulmonary: Effort: Pulmonary effort is normal. No respiratory distress. Breath sounds: Normal breath sounds. No wheezing, rhonchi or rales. Chest: Chest wall: No tenderness. Abdominal: General: Bowel sounds are normal. There is no distension. Palpations: Abdomen is soft. Tenderness: There is no abdominal tenderness. Musculoskeletal: General: No deformity. Cervical back: Normal range of motion. No edema. Right lower leg: No edema. Left lower leg: No edema. Skin: General: Skin is warm and dry. Neurological: Mental Status: He is alert and oriented to person, place, and time. Psychiatric: Attention and Perception: Attention normal. Mood and Affect: Mood normal. Speech: Speech normal. EKG: None completed today. ASSESSMENT/PLAN: Assessment & Plan 1. Atrial Fibrillation - Pacemaker test in June and July showed no events, normal device function, and a battery life of almost 10 years -Elevated CPX3LE5-ADWl score of 4, currently on Eliquis 5 mg twice daily for stroke risk reduction with no abnormal bleeding reported -Continues on metoprolol for rate control 2. Hypertension - Blood pressure readings within acceptable limits (typically around 130s over 80s) - Currently on losartan and metoprolol - Advised to monitor blood pressure at home and report any significant increases or symptoms such as headaches 3. Hyperlipidemia - LDL cholesterol level well-controlled at 35 - Currently on atorvastatin - No changes to medication regimen necessary at this time 4. Sleep Apnea - Uses CPAP machine religiously every night with no symptoms of waking up gasping for air - Continue using CPAP machine as prescribed 5. Tachycardia-bradycardia syndrome - Continue with device monitoring Thank you for allowing us to participate in the care of this patient. The patient will follow up in9 mo, sooner PRN. As per AHA guidelines and previously established plan of care by Dr. Carley Alonzo MD, we discussed the following today: 1. Atrial fibrillation, unspecified type (CMS/HCC) 2. Tachycardia-bradycardia syndrome (CMS/HCC) 3. Essential hypertension, benign 4. Obstructive sleep apnea 5. Hypertension, unspecified type [facility] Cosigned by Carley Alonzo MD at 08/30/2024 2:28 PM EST documented in this encounter Plan of Treatment Upcoming Encounters Date Type Department Care Team (Late st Contact Info) Description 10/10/2024 1:15 PM EDT Office Visit Adult Medicine [facility] [address] [place] [address] Glenn Isidro MD [address] [place] [id number] 04/20/2025 1:30 PM EDT Office Visit [facility] [address] [place] [address] Carley Alonzo MD [address] [place] [address] [address] [place] [address] 07/24/2025 1:30 PM EST Ancillary Procedure [facility] [address] [place] [address] documented as of this encounter Visit Diagnoses Diagnosis Atrial fibrillation, unspecified type (CMS/HCC)- Primary Tachycardia-bradycardia syndrome (CMS/HCC) Sinoatrial node dysfunction Essential hypertension, benign Obstructive sleep apnea Obstructive sleep apnea (adult) (pediatric) Hypertension, unspecified type Encounter for adjustment or management of cardiac device documented in this encounter Historical Medications * This list may reflect changes made after this encounter. vitamin E acetate (VITAMIN E ORAL) Take 180 Units by mouth 1 (one) time each day. magnesium glycinate 100 mg magnesium capsule Take 100 mg (1 capsule total) by mouth 1 (one) time each day. tamsulosin (FLOMAX) 0.4 mg 24 hr capsule Take 1 capsule (0.4 mg total) by mouth 1 (one) time each day with breakfast. Capsules should be taken 30 minutes following the same meal each day. coenzyme Q10 400 mg capsule Take 400 mg by mouth 1 (one) time each day. added in this encounter Care Teams Pepper Cutter Relationship Specialty Start Date End Date Glenn Isidro MD [address] [place] [id number] PCP - General Internal Medicine 08/03/24 documented as of this encounter
[2024-09-16 21:02] LABS: Testosterone, Total 609 ng/dL (250-1100)
== END 2024-09-09 11:42 | disposition home or self-care (01) ==
LOC: HO.LAB 11:41
PROVIDERS: PCP Internal Medicine; Visit Provider Urology
DX: E29.1 Testicular hypofunction (principal); Z12.5 Encounter for screening for malignant neoplasm of prostate
CPT/HCPCS: 36415; 84153; 84403; 85027

== ENCOUNTER 2024-09-29 11:24 | Outpatient (AMB) | payer MEDICARE, SELFPAY ==
--- NOTE | 2024-09-29 11:34 | MHC.OFFVIS ---
Intake Visit Reasons: 3m/Testo labs Intake Note: Patient is present for 3M/TESTO Urology Medication:VITAMIN B12,VITAMIN B1,VITAMIN B6,ALLOPURINOL,ALFUZOSIN,TESTOSTERONE,TADALAFIL Antibiotic Allergy:NONE Blood Thinner:APIXABAN Manager Of Employee Relations Required: No Allergies No Known Allergies [No Known Allergies*] Allergy (Verified 09/29/24 11:35) HPI Comments Details: Adeline Gonzalez is a very pleasant male of [employer] extraction. He is a patient of Dr Isidro. He is seen for the following urologic conditions - hypogonadism - nephrolithiasis - lower urinary tract symptoms Three-month follow-up labs Increased daily to 10 mg with 40 mg on demand Normal testosterone - continue injectable Hypogonadism: Lab work stable Continue to follow. - testosterone injectable 80 mg weekly The patient presents for hypogonadism which was diagnosed years ago, and the patient reports no current symptoms. Laboratory testing has included Testosterone August 2014 446, August 2015 418 PSA 10/12 0.6 10/13 , Testosterone 247 - switch back to 2 packets per day, 11/12 , Testosterone - 6 pumps - 647, 05/15 , Testosterone 404, PSA 0.6 08/17 T 551, PSA 0.5, 02/14 T 739 PSA 0.8 02/15 T 701 PSA 0.6, 03/19 T 208 PSA 0.5, 12/18 253 0.5 42, 03/20 700 0.5 44, 09/18 T 912 P 1.0, 03/21 T920 P 1.1, 09/19 T 640, 03/22 800 0.96 48, 09/20 610 0.83 Erectile dysfunction secondary to diabetes As responsive to daily 5 mg tadalafil and on demand Lower urinary tract symptoms Initial presentation with weakness of stream and nocturia Good response to Flomax with decreased nocturia Switch from Flomax to alfuzosin for retrograde ejaculation Nephrolithiasis/Urolithiasis: They are here for further evaluation of nephrolithiasis - minimal symptoms. Urolithiasis was diagnosed 2014. The patient previously had kidney stones whose composition w a calcium oxalate 09/15 , calcium oxalate - dihydrate 80%. Laboratory investigations include 11/11 - , Normocalcemia (9.0), Normal PTH, Normal uric acid. 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 Prior treatment(s) include 06/14 R ESWL 12/14 medical management, with allopurinol, vitamin B6. Prior imaging includes a CT (computed tomography) scan of the abdomen/pelvis (stone protocol) August 2014. 3 stones each one to 2 mm in size low pole right kidney. , an x-ray August 2015 4 mm right lower pole, 04/13 R 5mmx3 mid pole 10/13 , , a KUB x-ray 5mm right 04/14 , a KUB x-ray, showing radiodense stone(s) R >L - 6mm 07/16 KUB small fragments on right 01/13 , a renal ultrasound, showing radiodense stone(s) R>L - small each side 08/17 , a renal ultrasound bilateral small stones, right cyst 08/18 renal us - stones 5mm on right, none on left, cysts small bilateral 01/16 renal ultrasound right kidney 1.2 cm stone, left kidney 7 mm, 11/17 renal ultrasound bilateral stones similar size Current therapeutic plan will be Keep on Vit B6 PFSH Medical History Impotence Obesity HTN (hypertension) Diabetes mellitus, type II Hyperoxaluria Weak urinary stream Hypogonadism in male Erectile dysfunction Surgical History S/P panniculectomy S/P ventral herniorrhaphy S/P cardiac pacemaker procedure Hx of laparoscopic gastric banding Hx of knee surgery History of surgery Family History Mother Hypertension Diabetes Father Heart disease Diabetes Sister No problems noted. Sister No problems noted. Sister No problems noted. Sister No problems noted. Sister Diabetes Sister No problems noted. Sister Diabetes Brother No problems noted. Brother Diabetes Son No problems noted. Son No problems noted. Daughter No problems noted. Daughter No problems noted. Daughter Diabetes Social History Alcohol intake: never Patient Tobacco Use Status: Never used Tobacco Review of Systems Const Denies chills and Denies fever(s) Card Reports no additional complaints and Denies syncope Resp Denies cough GI Denies abdominal pain and Denies heartburn Reports as per HPI and Denies change in libido Neuro Denies syncope Psych Denies change in libido Endo Denies change in libido Physical Exam Const General: cooperative, healthy appearing, comfortable and no acute distress Orientation/consciousness: patient oriented x3 HEENT Face and sinus: Yes normal facial exam Mouth: moist mucous membranes Neck Neck: Yes normal visual inspection, Yes full ROM and Yes trachea midline Chest Chest palpation & inspection: normal inspection of the chest Resp Effort & Inspection: normal respiratory effort, able to speak in complete sentences and no respiratory distress GI Inspection: Yes normal to inspection Back/Spine/Pelvis Cervical Spine: normal cervical lordosis Thoracic/Lumbar Spine: thoracic and lumbar spine normal to inspection Skin General skin exam: no rashes or lesions noted Neuro General: patient oriented x3, gait normal, tone normal and moves all extremities Extrem General: Yes normal to inspection and Yes capillary refill normal Assessment & Plan Assessment & Plan (1) Nephrolithiasis: Code(s): N20.0 - Calculus of kidney Category: Medical (2) Erectile dysfunction associated with type 2 diabetes mellitus: Code(s): E11.69 - Type 2 diabetes mellitus with other specified complication; N52.1 - Erectile dysfunction due to diseases classified elsewhere Category: Medical (3) BPH w urinary obs/LUTS: Code(s): N40.1 - Benign prostatic hyperplasia with lower urinary tract symptoms; N13.8 - Other obstructive and reflux uropathy Category: Medical (4) Hypogonadism in male: Code(s): E29.1 - Testicular hypofunction Category: Medical Plan Six-month follow-up lab work Orders: Orders Prostate Specific Antigen 6 Months E29.1 - Testicular hypofunction Testosterone, Total 6 Months E29.1 - Testicular hypofunction Complete Blood Count no Diff 6 Months E29.1 - Testicular hypofunction Patient Instructions: This note is constructed using voice recognition software. While every effort has been made to ensure accuracy char filter tank tender errors may have been included. Imaging studies, laboratory and physical exam results were discussed and reviewed in detail. No major barriers to patient understanding were identified. An opportunity to ask questions regarding the treatment plan was provided. All questions were answered. The patient expressed understanding and agreement with the above treatment plan. The patient is aware they should contact our office by phone for worsening of their current condition or the appearance of new urologic symptoms. Compliance is encouraged with any medications and followup testing that is ordered. It is a privilege to participate in the urologic care of your patient. If you have any questions or concerns regarding treatment for the above conditions, or other urologic issues, please do not hesitate to contact me. The office telephone contact is [phone]. Sincerely, Dr Paul Macdonald MD, [facility] - Urology Compassionate Specialist Care for the Genitourinary System Coding Level of Care Code Est Pt Level 3 (61571) Complex EM visit Add On G2211 Diagnoses Nephrolithiasis N20.0 Erectile dysfunction associated with type 2 diabetes mellitus E11.69; N52.1 BPH w urinary obs/LUTS N40.1; N13.8 Hypogonadism in male E29.1
--- OUTSIDE RECORDS SUMMARY | 2024-09-29 12:41 | XMS_ITS | Clinical Summary ---
Author Organization [facility] Address [address] [place] [address] Phone Care Team Providers Care Register Clerk Name Role Phone Glenn Isidro MD Primary Care Provider [phone] Allergies No known active allergies Medications loratadine [...] Active blood-glucose meter (ACCU-CHEK PEPE PLUS METER [facility] To test sugars 3x a day. 1 [...] 05/10/2012 Obstructive sleep apnea 02/19/2012 Overview (05/24/2024): [facility] Polysomnogram: Date 07/16/2019; Wt 268#; BMI 38; [...] Care Team Description 08/29/2024 Telephone Adult Medicine [address] [address] Glenn Isidro MD Referral (Fax requesting an insurance referral - urology) 08/26/2024 10:40 AM EST Office Visit [facility] Cardiology [facility] [address] [place] [address] Yumiko Tejada NP Atrial fibrillation, unspecified type (CMS/HCC) (Primary Dx); Tachycardia-bradycar vinnie syndrome (CMS/HCC); Essential hypertension, benign; Obstructive sleep apnea; Hypertension, unspecified type 08/02/2024 5:25 PM EST Ancillary Procedure [facility] Cardiology [facility] [address] [place] [address] 07/21/2024 2:30 PM EST Ancillary Procedure [facility] - [address] [place] [address] Encounter for adjustment or management of cardiac device 07/21/2024 Telephone [facility] - [address] [place] [address] Madai Ames MA from Last 3 Months Immunizations Name Administration Dates Next Due DTaP, Unspecified 09/25/2000 Hepatitis B (Bnuklki-C-Nmfbj , Recombivax HB-Adult) 19yo and older 01/04/2001 [...] Date Site/Laterality Comments KNEE ARTHROSCOPY Left PROCEDURE: NC ARTHROSCOPY AID TX SPINE&/FX KNEE W/O FIXJ; COMMENT: -2003 LAPAROSCOPIC GASTRIC BANDING 2007 PROCEDURE: LAP ADJUSTABLE GASTRIC BAND COLONOSCOPY 02/07/2014 PROCEDURE: HISTORICAL COLONOSCOPY; COMMENT: tics and hemorrhoids; repeat in ten yrs OTHER SURGICAL HISTORY 2010 PROCEDURE: NC UNLISTED PX ABDOMEN MUSCULOSKELETAL SYSTEM; COMMENT: abdominoplasty HERNIA REPAIR PROCEDURE: NC RPR 1ST INGUN HRNA AGE 7 MO-5 [...] 1:15 PM EDT Office Visit Adult Medicine [facility] [address] [place] [address] Glenn Isidro MD [address] [place] [address] 04/20/2025 1:30 PM EDT Office Visit [facility] [address] [place] [address] Carley Alonzo MD [facility] [address] [place] [address] 07/24/2025 1:30 PM EST Ancillary Procedure [facility] Cardiology [facility] [address] [facility] [address] [place] [id number] Health Maintenance Due Date Last Done Comments Diabetes: Annual Foot Exam 1961 Hepatitis B Vaccines (2 of 3 - 19+ 3-dose series) 02/01/2001 01/04/2001 DTaP,Tdap,and Td Vaccines (3 - Td or Tdap) 06/19/2021 06/19/2011, 09/25/2000, 09/25/2000 Depression Screening 06/07/2022 Falls Risk Assessment 06/07/2022 Hepatitis C Screening 06/07/2022 Medicare Annual Wellness Visit 06/07/2022 Social Influencers of Health Screening 06/07/2022 Colorectal Cancer Screening: Colonoscopy 02/08/2024 02/07/2014 Diabetes: Blood Sugar Control Test (HGBA1C) 03/29/2025 09/27/2024, 04/04/2024, 04/04/2024 Diabetes: Annual Retina Eye Exam 06/15/2025 06/15/2024, 05/16/2024 Diabetes: Annual Urine Albumin-Creatinine Ratio (uACR) 09/27/2025 09/27/2024, 04/04/2024 Diabetes: Annual GFR (Glomerular Filtration Rate) 09/27/2025 09/27/2024, 04/04/2024, 04/04/2024 Hypertension/CHF/CAD Annual BMP Blood Test 09/27/2025 09/27/2024, 04/04/2024, 04/04/2024 Cholesterol Screening (Lipid Panel) 09/27/2029 09/27/2024, 04/04/2024, 04/04/2024 MMR Vaccines Aged Out 01/04/2001, 09/25/2000 No lo nger eligible based on patient's age to complete this topic Influenza Vaccine Completed 02/24/2024, , 03/05/2022, Additional history exists Zoster Vaccines Completed 04/26/2024, 02/24/2024 COVID-19 Vaccine Completed 09/09/2024, , 04/02/2023, Additional history exists Pneumococcal Vaccine: 50+ Years Completed 09/09/2024, 10/05/2023, 08/12/2019, Additional history exists RSV Immunization Adult Patients Completed 09/09/2024 HIB Vaccines Aged Out No longer eligi [...] this topic Medical Devices Implanted Type Area Bag Builder Device Identifier Shelf Expiration Date Model / Serial / Lot Medt-Card Ephrata Xt Dr Almendarez [id number] Implanted: (Quantity not on file) Cardiac Pacemaker [employer] - CARDIAC RHYTH-CRDM RADHA XT DR ALMENDAREZ / [id number] / Medt-Card Ephrata Xt Dr Almendarez [id number] Implanted: (Quantity not on file) Cardiac Pacemaker [employer] - CARDIAC RHYTH-CRDM RADHA XT DR ALMENDAREZ [id number] / [id number] / Procedures Procedure Name Priority Date/Time Associated Diagnosis Comments MICROALBUMIN CREATININE URINE RATIO Routine 09/27/2024 11:51 AM EDT 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, without long-term current use of insulin LIPID PANEL WITH REFLEX TO DIRECT LDL Routine 09/27/2024 11:51 AM EDT 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, without long-term current use of insulin Hypercholesterolemi a COMPREHENSIVE METABOLIC PANEL Routine 09/27/2024 11:51 AM EDT 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, without long-term current use of insulin Essential hypertension, benign Encounter for long-term (current) use of medications HEMOGLOBIN A1C Routine 09/27/2024 11:51 AM EDT 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, without long-term current use of insulin CARDIAC DEVICE CHECK- REMOTE- MURJ Routine 08/02/2024 5:20 PM EST CARDIAC DEVICE CHECK- IN CLINIC- MURJ Routine 07/21/2024 2:34 PM EST Encounter for adjustment or management of cardiac device EXTERNAL DIABETIC RETINA EYE EXAM 06/15/2024 COLONOSCOPY Routine 02/07/2014 from Last 3 Months or Most Recently Relevant to Health Maintenance Results * (ABNORMAL) Lipid panel with reflex to direct LDL (09/27/2024 11:51 AM EDT) Cholesterol 104 0 - 200 mg/dL LAB CHEMISTRY METHOD 09/27/2024 5:[address] [facility] Triglycerides 171(H) 0 - 150 mg/dL LAB CHEMISTRY METHOD 09/27/2024 5:[address] [facility] HDL 50 >=40 mg/dL LAB CHEMISTRY METHOD 09/27/2024 5:[address] [facility] LDL Calculated 20 0 - 100 mg/dL LAB CHEMISTRY METHOD 09/27/2024 5:[address] [facility] VLDL Cholesterol Teja 34.2 mg/dL LAB CHEMISTRY METHOD 09/27/2024 5:[address] [facility] Non HDL Chol. (LDL+VLDL) 54 <145 mg/dL LAB CHEMISTRY METHOD 09/27/2024 5:[address] [facility] Chol/HDL Ratio 2.1 0.0 - 4.4 LAB CHEMISTRY METHOD 09/27/2024 5:[address] [facility] Blood Venous blood specimen / Unknown Venipuncture / Unknown 09/27/2024 11:51 AM EDT 09/27/2024 11:51 AM EDT us Glenn Isidro MD LAB BLOOD ORDERABLES Final Resu lt Performing Organization Address City/[facility]/ZIP Co de Phone Number [facility] [address] [place] [address], [place] [phone] * (ABNORMAL) Microalbumin creatinine urine ratio (09/27/2024 11:51 AM EDT) Creatinine, Urine 142.0 mg/dL LAB CHEMISTRY METHOD 09/27/2024 7:[address] [facility] Microalb, Ur 54.3(H) 0.0 - 29.0 mg/L LAB CHEMISTRY METHOD 09/27/2024 7:[address] [facility] Microalb/Crea t Ratio 38(H) <30 mg/g creat LAB CHEMISTRY METHOD 09/27/2024 7:[address] [facility] Urine Urine specimen obtained by clean catch procedure / Unknown Non-blood Collection / Unknown 09/27/2024 11:51 AM EDT 09/27/2024 11:51 AM EDT us Glenn Isidro MD LAB URINE ORDERABLES Final Resu lt Performing Organization Address [facility]/ZIP Co de Phone Number [facility] [address] [place] [address], [place] [phone] * (ABNORMAL) Hemoglobin A1c (09/27/2024 11:51 AM EDT) Hemoglobin A1C 6.6(H) <6.5 % LAB CHEMISTRY METHOD 09/27/2024 10:[address] [facility] Mean Bld Glu Estim. 143 mg/dL LAB CHEMISTRY METHOD 09/27/2024 10:[address] [facility] Blood Venous blood specimen / Unknown Venipuncture / Unknown 09/27/2024 11:51 AM EDT 09/27/2024 11:51 AM EDT us Glenn Isidro MD LAB BLOOD ORDERABLES Final Resu lt [facility] [address] [place] [address], * (ABNORMAL) Comprehensive metabolic panel (09/27/2024 11:51 AM EDT) Pathologist [facility] Sodium 141 133 - 145 mmol/L LAB CHEMISTRY METHOD 09/27/2024 5:35 PM [facility] Potassium 3.6 3.5 - 5.5 mmol/L LAB CHEMISTRY METHOD 09/27/2024 5:35 PM [facility] Chloride 107 96 - 110 mmol/L LAB CHEMISTRY METHOD 09/27/2024 5:35 PM [facility] CO2 26 21 - 32 mmol/L LAB CHEMISTRY METHOD 09/27/2024 5:35 PM [facility] Anion Gap 8 3 - 11 LAB CHEMISTRY METHOD 09/27/2024 5:35 PM [facility] Glucose 173(H) 70 - 100 mg/dL LAB CHEMISTRY METHOD 09/27/2024 5:35 PM [facility] BUN 15 5 - 25 mg/dL LAB CHEMISTRY METHOD 09/27/2024 5:[address] [facility] Creatinine 1.08 0.70 - 1.30 mg/dL LAB CHEMISTRY METHOD 09/27/2024 5:[address] [facility] eGFR 72 >=60 mL/min/1. 73m2 LAB CHEMISTRY METHOD 09/27/2024 5:[address] [facility] Comment:Calculation based on the??Chronic Kidney Disease Epidemiology Collaboration (CKD-EPI) equation refit??without adjustment for race. BUN/Creatinine Ratio 13.9 LAB CHEMISTRY METHOD 09/27/2024 5:[address] [facility] Calcium 8.8 8.5 - 10.5 mg/dL LAB CHEMISTRY METHOD 09/27/2024 5:35 PM [facility] AST (SGOT) 40 10 - 42 unit/L LAB CHEMISTRY METHOD 09/27/2024 5:35 PM [facility] ALT (SGPT) 52 10 - 60 unit/L LAB CHEMISTRY METHOD 09/27/2024 5:35 PM [facility] Alkaline Phosphatase 72 42 - 121 unit/L LAB CHEMISTRY METHOD 09/27/2024 5:[address] [facility] Total Protein 7.4 6.0 - 8.0 g/dL LAB CHEMISTRY METHOD 09/27/2024 5:35 PM [facility] Albumin 3.8 3.2 - 5.0 g/dL LAB CHEMISTRY METHOD 09/27/2024 5:[address] [facility] Total Bilirubin 0.7 0.0 - 1.4 mg/dL LAB CHEMISTRY METHOD 09/27/2024 5:35 PM [facility] Blood Venous blood specimen / Unknown Venipuncture / Unknown 09/27/2024 11:51 AM EDT 09/27/2024 11:51 AM EDT us Glenn Isidro MD LAB BLOOD ORDERABLES Final Resu lt [facility] [address] [place] [address], * Cardiac device check - Remote- MURJ (08/02/2024 5:20 PM EST) Date Time Interrogation Session [id number] CV DEVICE CHECK Type Interrogation Session Remote CV DEVICE CHECK Implantable Pulse Generator Bag Builder MDT CV DEVICE CHECK Implantable Pulse Generator Type IPG CV DEVICE CHECK Implantable Pulse Generator Model Radha XT DR MRI [id number] CV DEVICE CHECK Implantable Pulse Generator Serial Number [id number] CV DEVICE CHECK Implantable Pulse Generator Implant Date 20190620 CV DEVICE CHECK Battery Remaining Longevity 118.0 CV DEVICE CHECK Battery Voltage 3.000 CV D EVICE CHECK Battery GEOLOGICAL SURVEY FIELD ASSISTANT Trigger 2.625 CV DEVICE CHECK Battery Status Middle of Service CV DEVICE CHECK Farhad Statistic RA Percent Paced 10.70 CV DEVICE CHECK Farhad Statistic RV Percent Paced 0.03 CV DEVICE CHECK Atrial Tachy Statistic AT/AF Upton Percent 0.00 CV DEVICE CHECK Lead Channel [...] Result * CARDIAC DEVICE CHECK- [place] [facility] [place] (07/21/2024 2:34 PM EST) Date Time Interrogation Session [id number] CV DEVICE CHECK Implantable Pulse Generator Bag Builder MDCatrina CV DEVICE CHECK Implantable Pulse Generator Type IPG CV DEVICE CHECK Implantable Pulse Generator Model Ephrata XT DR ALMENDAREZ CV DEVICE CHECK Implantable Pulse Generator Serial Number [id number] CV DEVICE CHECK Implantable Pulse Generator Implant Date 20190620 CV DEVICE CHECK Battery Status Middle of Service CV DEVICE CHECK Farhad Statistic RA Percent Paced 12.80 CV DEVICE CHECK Farhad Statistic RV Percent Paced 0.10 CV DEVICE CHECK Atrial Tachy Statistic AT/AF Upton Percent 0.10 CV DEVICE CHECK Lead Channel [...] Report (06/15/2024) Anatomical Region Laterality Modality Ultrasound us Provider Onbase MD NAVARRO US PROCEDURES Final Resul t * Colonoscopy (02/07/2014) Colonoscopy No Interpretation , Abstracted Anatomical Region Laterality Modality Other us Historical Provider HEALTH MAINTENANCE Final Result from Last 3 Months or Most Recently Relevant to Health Maintenance Insurance [employer] Advance Directives Documents on File Type Date Recorded Patient Hospital Technician Expl anation Health Care Decision (hx) 09/05/2023 [...] 05/13/2022 HE ALTH CARE PROXY Care Teams Register Clerk Relationship Specialty Start Date End Date Glenn Isidro MD [address] [place] [address] PCP - General Internal Medicine 08/03/24
--- OUTSIDE RECORDS SUMMARY | 2024-09-29 12:41 | XMS_ITS | Clinical Summary ---
Author Organization [facility] Address [address] [place] [address] Care Team Providers Care Contracting Specialist Name Role Phone Glenn Isidro MD Primary Care Provider Social History Tobacco Use Types Packs/Day Years [...] Sigmoidoscopy 2000 Pneumococcal Vaccine: 65+ Ye ars ( - PCV) 2016 Influenza Vaccine (Season Ended) 2025 Hepatitis B Vaccine Aged Out No longe r eligible based on patient's age to complete this topic [place] [address] [place] [address] MEDICARE [employer] Care Teams Contracting Specialist Relationship Specialty Start Date End Date Glenn Isidro MD PCP - General Internal Medicine 08/31/23
== END 2024-09-29 12:40 | disposition home or self-care (01) ==
LOC: HO.HUSH 11:25
PROVIDERS: PCP Internal Medicine; Visit Provider Urology
DX: N20.0 Calculus of kidney (principal); E11.69 Type 2 diabetes mellitus with other specified complication; N52.1 Erectile dysfunction due to diseases classified elsewhere; N40.1 Benign prostatic hyperplasia with lower urinary tract symptoms; N13.8 Other obstructive and reflux uropathy; E29.1 Testicular hypofunction
CPT/HCPCS: 99213; G2211

== ENCOUNTER → 2024-09-29 11:24 | Outpatient (BNVA) | payer MEDICARE, SELFPAY | PROVIDERS: PCP Internal Medicine; Visit Provider Urology | DX: N40.1 Benign prostatic hyperplasia with lower urinary tract symptoms (principal); N13.8 Other obstructive and reflux uropathy; N20.0 Calculus of kidney; E11.69 Type 2 diabetes mellitus with other specified complication; N52.1 Erectile dysfunction due to diseases classified elsewhere; E29.1 Testicular hypofunction | CPT/HCPCS: 99212 ==

== ENCOUNTER 2025-03-14 09:15 | Outpatient (REF) | payer MEDICARE, SELFPAY ==
[2025-03-14 10:37] LABS: Hematocrit 45.5 % (42.0-52.0); Hemoglobin 16.0 g/dl (14.0-18.0); Mean Corpuscular HGB Conc 35.2 g/dl (31.0-36.0); Mean Corpuscular Hemoglobin 31.8 pg (27.0-33.0); Mean Corpuscular Volume 90.5 fL (80.0-98.0); NRBC Abs Auto 0.000 X10*3/uL (0.0-0.012); NRBC Pct Auto 0.0 /100WBC (0.0-0.2); Platelet Count 246 X10*3/uL (160-400); Red Blood Count 5.03 X10*6/uL (4.60-5.80); White Blood Count 6.9 X10*3/uL (4.8-10.8)
--- OUTSIDE RECORDS SUMMARY | 2025-03-14 11:42 | XMS_ITS | Clinical Summary ---
Author Organization [facility] Address [address] [place] [address] Phone Care Team Providers Care School Age Lead Teacher Name Role Phone Glenn Isidro MD Primary Care Provider [phone] Allergies No known active allergies Medications loratadine (CLARITIN) 10 mg tablet TAKE 1 TABLET BY MOUTH DAILY 90 tablet 1 4 Active atorvastatin (LIPITOR) 40 mg tablet Take 1 tablet (40 mg total) by mouth at bedtime. 4 Active TESTOSTERONE IM Inject 12 mg into the shoulder, thigh, or buttocks 1 (one) time per week. Active ferrous sulfate 325 mg (65 mg [...] Active blood-glucose meter (ACCU-CHEK PEPE PLUS METER [facility] To test sugars 3x a day. 1 [...] mouth 1 (one) time each day. Active FreeStyle Lite Meter monitoring kitIndications:C ontrolled type 2 diabetes mellitus with other diabetic kidney complication, without long-term current use of insulin ([facility] V24, CMS/[facility] V28) 1 each 1 (one) time each day. Use to test blood sugars daily 1 each 5 10/12/19 26 Active blood sugar diagnostic (FreeStyle Lite Strips) test stripIndications :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, without long-term current use of insulin (CMS/[facility] V24, CMS/[facility] V28) Use to test blood sugars daily 100 each 3 5 10/12/19 26 Active FreeStyle Lancets 28 gauge lancetsIndicatio ns: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, without long-term current use of insulin ([facility] V24, CMS/[facility] V28) Use to test blood sugar daily 100 each 3 5 10/12/19 26 Active Eliquis 5 mg tablet TAKE 1 TABLET BY MOUTH TWICE DAILY 180 tablet 3 5 Active metFORMIN (FORTAMET) 1,000 mg 24 hr tablet Take 1 tablet (1,000 mg total) by mouth 1 (one) time each day. 90 tablet 5 Active Vitamin D3 50 mcg (2,000 unit) tablet TAKE 1 TABLET BY MOUTH EVERY DAY 90 tablet 1 5 Active metoprolol succinate (TOPROL-XL) 25 mg 24 hr tablet Take 1 tablet (25 mg total) by mouth 1 (one) time each day. 90 tablet 5 Active Active Problems Problem Noted Date Diagnosed Date Essential hypertension, benign 05/24/2024 Overview (05/24/2024): Last Assessment & Plan: Patient's blood pressure is under excellent control with a reading today of 130/80. He continues on metoprolol and losartan. Tachycardia-bradycardia syndrome (CMS/[facility] V24, C [place]/[facility] V28) 03/13/2023 Overview (05/24/2024): Last Assessment & Plan: Patient has history of tachybradycardia syndrome status post pacemaker implantation. No recent cardiac rhythm abnormalities were identified. Primary osteoarthritis of both knees 10/21/2021 Gastroesophageal reflux disease 08/29/2019 Atrial fibrillation ([facility]/HCC V24, CMS/[facility] V28) 0 08/18/2019 Overview (05/24/2024): Last Assessment & Plan: Patient has history of atrial fibrillation and continues on anticoagulation with Eliquis 5 mg twice daily. He is appropriately rate controlled on metoprolol 25 mg daily. PLMD (periodic limb movement disorder) 0 Microalbuminuria 06/02/2019 Patellofemoral arthritis of left knee 03/22/2019 Primary osteoarthritis of left knee 03/22/2019 Type 2 diabetes, controlled, with renal manifestation ([facility]/HCC V24, [facility] V28) 05/29/2015 Renal cysts, acquired, bilateral 10/02/2014 Overview (05/24/2024): Follows with Dr. Shields Renal stone 08/18/2014 Sebaceous cyst 05/10/2012 Obstructive sleep apnea 02/19/2012 Overview (05/24/2024): [facility] [place] Polysomnogram: Date 07/16/2019; Wt 268#; BMI 38; [...] 2019 polysomnogram. Morbid obesity with BMI of 4 0.0-44.9, adult ([facility] V24, [facility] V28) Encounters Date Type Department Care Team Description 02/10/2025 Telephone Gastroenterology - [place] 175 [facility] 175 [facility] [address] [place] [address] Teresa Colvin MA 02/10/2025 Telephone Gastroenterology - [place] 175 [facility] 175 [facility] [address] [place] [address] Anna Wheeler MD 01/26/2025 1:55 AM EDT Ancillary Procedure [facility] - [facility] [address] [facility] [address] [place] [address] from Last 3 Months Immunizations Name Administration Dates Next Due DTaP, Unspecified 09/25/2000 Hepatitis B (Kfggjpq-T-Oihhe , Recombivax HB-Adult) 19yo and older 01/04/2001 [...] Date Site/Laterality Comments KNEE ARTHROSCOPY Left PROCEDURE: MD ARTHROSCOPY AID TX SPINE&/FX KNEE W/O FIXJ; COMMENT: -2003 LAPAROSCOPIC GASTRIC BANDING 2007 PROCEDURE: LAP ADJUSTABLE GASTRIC BAND COLONOSCOPY 02/07/2014 PROCEDURE: HISTORICAL COLONOSCOPY; COMMENT: tics and hemorrhoids; repeat in ten yrs OTHER SURGICAL HISTORY 2010 PROCEDURE: MD UNLISTED PX ABDOMEN MUSCULOSKELETAL SYSTEM; COMMENT: abdominoplasty HERNIA REPAIR PROCEDURE: MD RPR 1ST INGUN HRNA AGE 7 MO-5 [...] Date Smoking Tobacco: Never Smokeless Tobacco: Never Tobacco Cessation:Counseling Given: Not Answered Alcohol Use Standard Drinks/Week Comments Not Currently 0 (1 standard drink = 0.6 oz pur e alcohol) Housing Instability Answer Date Recorde d Are you worried that in the next 2 months you may not have stable housing? No 10/07/2024 Food Access & Nutrition Answer Date Rec orded Do you have access to a vari ety of food including fruits and vegetables? Yes 10/07/2024 Access to Healthcare Answer Date Record ed Within the last 3 months, isaias lopez many times did you visit the emergency department for your medical care? 0 10/07/2024 Health Literacy Answer Date Recorded How often do you need to hav e someone help you when you read instructions, pamphlets, or other written material from your doctor or pharmacy? Never 10/07/2024 Caregiver: How often do you need to have someone help you when you read instructions, pamphlets, or other written material from your doctor or pharmacy? Not on file 10/07/2024 Financial Risk Answer Date Recorded How hard is it for you to pa y for the very basics like food, housing, medical care, and air conditioning / heating? Not very hard 10/07/2024 Transportation Answer Date Recorded Has the lack of transportati on kept you from meetings, work, or from getting things needed for daily living? No Has the lack of transportati on kept you from medical appointments or from getting medications? No 10/07/2024 Social Isolation Answer Date Recorded How often do you feel lonely or isolated from th ose around you? Rarely 10/07/2024 Food Risk Answer Date Recorded Within the past 12 months we worried whether our food would run out before we got money to buy more. Never true 10/07/2024 Within the past 12 months th e food we bought just didn't last and we didn't have money to get more. Never true 10/07/2024 Dependent Care Answer Date Recorded Do you need help finding or paying for care for your loved ones. For example, child study team director or elderly care for an older adult? No 10/07/2024 Education Answer Date Recorded Do you think completing more education or training, like finishing a GED, going to college, or learning a trade, would be helpful for you? No 10/07/2024 Employment and Income Answer Date Recor ded During the last four weeks, have you been actively looking for work? No 10/07/2024 Living Situation Answer Date Recorded What is your living situation? 0 10/07/2024 Sex and Gender Information Value Date Recorded Sex Assigned at Male 12/31/2024 12:19 PM EDT Legal Sex Male 9:42 AM EST Gender Identity Male 12/31/2024 12:19 PM EDT Sexual Orientation Straight 12/31/2024 12 :19 PM EDT Obstetrics History Last Filed Vital Signs Vital Sign Reading Time Taken Comments Blood Pressure 120/60 10/10/2024 1:10 PM EDT Pulse 77 10/10/2024 1:10 PM EDT Temperature 36.7 C (98 F) 10/10/2024 1:10 PM EDT Respiratory Rate 15 10/10/2024 1:10 PM EDT Oxygen Saturation 99% 10/10/2024 1:10 PM EDT Inhaled Oxygen Concentration - - Weight 123 kg (271 lb) 10/10/2024 1:10 PM EDT Height 176.5 cm (5' 9.49 ) 10/10/2024 1:10 PM ED T Body Mass Index 39.46 10/10/2024 1:10 PM EDT Plan of Treatment Upcoming Encounters Date Type Department Care Team (Late st Contact Info) Description 04/20/2025 1:30 PM EDT Office Visit [facility] [address] [place] [address] [address] [place] [phone] Carley Alonzo MD [address] [place] [address] [address] [place] [phone] 04/21/2025 3:45 PM EDT Office Visit Adult Medicine [facility] [address] [place] [address] Glenn Isidro MD [address] [place], [place] 04/26/2025 12:00 PM EDT Appointment [facility] Endoscopy [address] [facility] [place] [phone] Anna Wheeler MD 175 [facility] [address] [place] [address] 07/24/2025 1:30 PM EST Ancillary Procedure [facility] - [facility] [address] [facility] [address] [place] [phone] Health Maintenance Due Date Last Done Comments Diabetes: Annual Foot Exam 1961 Hepatitis B Vaccines (2 of 3 - 19+ 3-dose series) 02/01/2001 01/04/2001 DTaP,Tdap,and Td Vaccines (3 - Td or Tdap) 06/19/2021 06/19/2011, 09/25/2000, 09/25/2000 Hepatitis C Screening 06/07/2022 Medicare Annual Wellness Visit 06/07/2022 Colorectal Cancer Screening: Colonoscopy 02/08/2024 02/07/2014 Influenza Vaccine (#1) 2025 , 03/16/2023, 03/05/2022, Additional history exists Diabetes: Blood Sugar Control Test (HGBA1C) 03/29/2025 09/27/2024, 04/04/2024, 04/04/2024 Diabetes: Annual Retina Eye Exam 06/15/2025 06/15/2024, 05/16/2024 Diabetes: Annual Urine Albumin-Creatinine Ratio (uACR) 09/27/2025 09/27/2024, 04/04/2024 Diabetes: Annual GFR (Glomerular Filtration Rate) 09/27/2025 09/27/2024, 04/04/2024, 04/04/2024 Hypertension/CHF/CAD Annual BMP Blood Test 09/27/2025 09/27/2024, 04/04/2024, 04/04/2024 Social Influencers of Health Screening 10/07/2025 10/07/2024 Falls Risk Assessment 10/10/2025 10/10/2024 Cholesterol Screening (Lipid Panel) 09/27/2029 09/27/2024, 04/04/2024, 04/04/2024 MMR Vaccines Aged Out 01/04/2001, 09/25/2000 No lo nger eligible based on patient's age to complete this topic Zoster Vaccines Completed 04/26/2024, 02/24/2024 COVID-19 Vaccine Completed 09/09/2024, , 04/02/2023, Additional history exists Pneumococcal Vaccine: 50+ Years Completed 09/09/2024, 10/05/2023, 08/12/2019, Additional history exists RSV Immunization Adult Patients Completed 09/09/2024 Depression Screening Completed 02/06/2025 HIB Vaccines Aged Out No longer eligi [...] age to complete this topic Meningococcal B Vaccine Aged Out No l onger eligible based on patient's age to complete this topic RSV Immunization Patients Under 20 months Aged Out No longer eligible based on patient's age to complete this topic Varicella Vaccines Aged Out No longer eligible based on patient's age to complete this topic Medical Devices Implanted Type Area Kiss Machine Operator Device Identifier Shelf Expiration Date Model / Serial / Lot Medt-Card Mcswain Xt Dr Almendarez [id number] Implanted: (Quantity not on file) Cardiac Pacemaker [employer] - CARDIAC RHYTH-CRDM RADHA XT DR ALMENDAREZ / [id number] / Medt-Card Mcswain Xt Dr Almendarez [id number] Implanted: (Quantity not on file) Cardiac Pacemaker [employer] - CARDIAC RHYTH-CRDM RADHA XT DR ALMENDAREZ [id number] / [id number] / Procedures Procedure Name Priority Date/Time Associated Diagnosis Comments CARDIAC DEVICE CHECK- REMOTE- MURJ Routine 01/26/2025 1:54 AM EDT MICROALBUMIN CREATININE URINE RATIO Routine 09/27/2024 11:51 AM EDT 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, without long-term current use of insulin ([facility] V24, [facility] V28) COMPREHENSIVE METABOLIC PANEL Routine 09/27/2024 11:51 AM EDT 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, without long-term current use of insulin (CMS/HCC V24, CMS/[facility] V28) Essential hypertension, benign Encounter for long-term (current) use of medications HEMOGLOBIN A1C Routine 09/27/2024 11:51 AM EDT 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, without long-term current use of insulin ([facility] V24, CMS/[facility] V28) LIPID PANEL WITH REFLEX TO DIRECT LDL Routine 09/27/2024 11:51 AM EDT 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, without long-term current use of insulin ([facility] V24, [facility]/HCC V28) Hypercholesterolemi a EXTERNAL DIABETIC RETINA EYE EXAM 06/15/2024 HM COLONOSCOPY Routine 02/07/2014 from Last 3 Months or Most Recently Relevant to Health Maintenance Results * Cardiac device check - Remote- MURJ (01/26/2025 1:54 AM EDT) Date Time Interrogation Session [id number] CV DEVICE CHECK Type Interrogation Session Remote CV DEVICE CHECK Implantable Pulse Generator Kiss Machine Operator MDT CV DEVICE CHECK Implantable Pulse Generator Type IPG CV DEVICE CHECK Implantable Pulse Generator Model Radha XT DR MRI [id number] CV DEVICE CHECK Implantable Pulse Generator Serial Number [id number] CV DEVICE CHECK Implantable Pulse Generator Implant Date 20190620 CV DEVICE CHECK Battery Remaining Longevity 112.0 CV DEVICE CHECK Battery Voltage 2.990 CV D EVICE CHECK Battery RAIL SIGNAL DESIGNER Trigger 2.625 CV DEVICE CHECK Battery Status Middle of Service CV DEVICE CHECK Farhad Statistic RA Percent Paced 16.41 CV DEVICE CHECK Farhad Statistic RV Percent Paced 0.04 CV DEVICE CHECK Atrial Tachy Statistic AT/AF Harrold Percent 0.00 CV DEVICE CHECK Lead Channel Sensing Intrinsic Amplitude 3.000 CV DEVICE CHECK Lead Channel Setting Sensing Sensitivity 0.30 CV DEVICE CHECK Lead Channel Impedance Value 380 CV DEVICE CHECK Lead Channel Pacing Threshold Amplitude 0.625 CV DEVICE CHECK Lead Channel Pacing Threshold Pulse Width 0.4 CV DEVICE CHECK Lead Channel RA Pacing Threshold Date 2025-01-19 CV DEVICE CHECK Lead Channel Setting Pacing Amplitude 1.500 CV DEVICE CHECK Lead Channel Setting Pacing Pulse Width 0.4 CV DEVICE CHECK Lead Channel Sensing Intrinsic Amplitude 5.625 CV DEVICE CHECK Lead Channel Setting Sensing Sensitivity 0.90 CV DEVICE CHECK Lead Channel Impedance Value 399 CV DEVICE CHECK Lead Channel Pacing Threshold Amplitude 0.625 CV DEVICE CHECK Lead Channel Pacing Threshold Pulse Width 0.4 CV DEVICE CHECK Lead Channel RV Pacing Threshold Date 2025-01-19 CV DEVICE CHECK Lead Channel Setting Pacing [...] 6 CV DEVICE CHECK Date of Service 2025-02-03 CV DEVICE CHECK Anatomical Region Laterality Modality Device Interroga tion 01/19/2025 11:1 2 PM EDT Impressions 01/25/2025 4:15 PM EDT Normal Remote: With Events * Normal Device Function * Events or Alerts: 1 * PAT * Battery: OK, 9.33 yrs * Sensing, impedance and thresholds reviewed * Programmed parameters reviewed * Presenting rhythm reviewed * Heart Rate Histograms reviewed Narrative Procedure Note Pal Vicente MD - 01/26/2025 IMPRESSION: Normal Remote: With Events * Normal Device Function * Events or Alerts: 1 * PAT * Battery: OK, 9.33 yrs * Sensing, impedance and thresholds reviewed * Programmed parameters reviewed * Presenting rhythm reviewed * Heart Rate Histograms reviewed Pal Vicente MD CV IMPLANTABLE CARDIAC DEV ICE PROCEDURES Final Result * (ABNORMAL) Lipid panel with reflex to direct LDL (09/27/2024 11:51 AM EDT) Cholesterol 104 0 - 200 mg/dL LAB CHEMISTRY METHOD 09/27/2024 5:35 PM EDT [facility] Triglycerides 171(H) 0 - 150 mg/dL LAB CHEMISTRY METHOD 09/27/2024 5:35 PM EDT [facility] HDL 50 >=40 mg/dL LAB CHEMISTRY METHOD 09/27/2024 5:35 PM EDT [facility] LDL Calculated 20 0 - 100 mg/dL LAB CHEMISTRY METHOD 09/27/2024 5:35 PM EDT [facility] VLDL Cholesterol Teja 34.2 mg/dL LAB CHEMISTRY METHOD 09/27/2024 5:35 PM EDT [facility] Non HDL Chol. (LDL+VLDL) 54 <145 mg/dL LAB CHEMISTRY METHOD 09/27/2024 5:35 PM EDT [facility] Chol/HDL Ratio 2.1 0.0 - 4.4 LAB CHEMISTRY METHOD 09/27/2024 5:35 PM EDT [facility] Blood Venous blood specimen / Unknown Venipuncture / Unknown 09/27/2024 11:51 AM EDT 09/27/2024 11:51 AM EDT us Glenn Isidro MD LAB BLOOD ORDERABLES Final Resu lt [facility] [address] [place] [address], [place] [phone] * (ABNORMAL) Microalbumin creatinine urine ratio (09/27/2024 11:51 AM EDT) Creatinine, Urine 142.0 mg/dL LAB CHEMISTRY METHOD 09/27/2024 7:25 PM EDT [facility] Microalb, Ur 54.3(H) 0.0 - 29.0 mg/L LAB CHEMISTRY METHOD 09/27/2024 7:25 PM EDT [facility] Microalb/Crea t Ratio 38(H) <30 mg/g creat LAB CHEMISTRY METHOD 09/27/2024 7:25 PM EDT [facility] Urine Urine specimen obtained by clean catch procedure / Unknown Non-blood Collection / Unknown 09/27/2024 11:51 AM EDT 09/27/2024 11:51 AM EDT us Glenn Isidro MD LAB URINE ORDERABLES Final Resu lt [facility] [address] [place] [address], [place] [phone] * (ABNORMAL) Hemoglobin A1c (09/27/2024 11:51 AM EDT) Pathologist [facility] Hemoglobin A1C 6.6(H) <6.5 % LAB CHEMISTRY METHOD 09/27/2024 10:32 PM EDT [facility] Mean Bld Glu Estim. 143 mg/dL LAB CHEMISTRY METHOD 09/27/2024 10:32 PM EDT [facility] Blood Venous blood specimen / Unknown Venipuncture / Unknown 09/27/2024 11:51 AM EDT 09/27/2024 11:51 AM EDT us Glenn Isidro MD LAB BLOOD ORDERABLES Final Resu lt [facility] [address] [place] [address], [place] [phone] * (ABNORMAL) Comprehensive metabolic panel (09/27/2024 11:51 AM EDT) [facility] Sodium 141 133 - 145 mmol/L LAB CHEMISTRY METHOD 09/27/2024 5:35 PM T [facility] Potassium 3.6 3.5 - 5.5 mmol/L LAB CHEMISTRY METHOD 09/27/2024 5:35 PM EDT [facility] Chloride 107 96 - 110 mmol/L LAB CHEMISTRY METHOD 09/27/2024 5:35 PM [facility] CO2 26 21 - 32 mmol/L LAB CHEMISTRY METHOD 09/27/2024 5:35 PM T [facility] Anion Gap 8 3 - 11 LAB CHEMISTRY METHOD 09/27/2024 5:35 PM [facility] Glucose 173(H) 70 - 100 mg/dL LAB CHEMISTRY METHOD 09/27/2024 5:35 PM T [facility] BUN 15 5 - 25 mg/dL LAB CHEMISTRY METHOD 09/27/2024 5:35 PM [facility] Creatinine 1.08 0.70 - 1.30 mg/dL LAB CHEMISTRY METHOD 09/27/2024 5:35 PM [facility] eGFR 72 >=60 mL/min/1. 73m2 LAB CHEMISTRY METHOD 09/27/2024 5:35 PM [facility] Comment:Calculation based on the Chronic Kidney Disease Epidemiology Collaboration (CKD-EPI) equation refit without adjustment for race. BUN/Creatinine Ratio 13.9 LAB CHEMISTRY METHOD 09/27/2024 5:35 PM [facility] Calcium 8.8 8.5 - 10.5 mg/dL LAB CHEMISTRY METHOD 09/27/2024 5:35 PM [facility] AST (SGOT) 40 10 - 42 unit/L LAB CHEMISTRY METHOD 09/27/2024 5:35 PM [facility] ALT (SGPT) 52 10 - 60 unit/L LAB CHEMISTRY METHOD 09/27/2024 5:35 PM [facility] Alkaline Phosphatase 72 42 - 121 unit/L LAB CHEMISTRY METHOD 09/27/2024 5:35 PM [facility] Total Protein 7.4 6.0 - 8.0 g/dL LAB CHEMISTRY METHOD 09/27/2024 5:35 PM [facility] Albumin 3.8 3.2 - 5.0 g/dL LAB CHEMISTRY METHOD 09/27/2024 5:35 PM [facility] Total Bilirubin 0.7 0.0 - 1.4 mg/dL LAB CHEMISTRY METHOD 09/27/2024 5:35 PM [facility] Blood Venous blood specimen / Unknown Venipuncture / Unknown 09/27/2024 11:51 AM EDT 09/27/2024 11:51 AM EDT us Glenn Isidro MD LAB BLOOD ORDERABLES Final Resu lt [facility] [address] [place] [address], [place] [phone] * External Diabetic Retina Eye Exam Report (06/15/2024) Anatomical Region Laterality Modality Ultrasound Provider Onbase IMG US PROCEDURES Final Resul t * Hm Colonoscopy (02/07/2014) HM Colonoscopy No Interpretation , Abstracted Anatomical Region Laterality Modality Other Historical Provider HEALTH MAINTENANCE Final Result from Last 3 Months or Most Recently Relevant to Health Maintenance Insurance [employer] Advance Directives Documents on File Type Date Recorded Patient Escort Patients Expl anation Health Care Decision (hx) 09/05/2023 [...] 05/13/2022 HE ALTH CARE PROXY Care Teams School Age Lead Teacher Relationship Specialty Start Date End Date Glenn Isidro MD PCP - General Internal Medicine 08/03/24
--- OUTSIDE RECORDS SUMMARY | 2025-03-14 11:43 | XMS_ITS | Encounter Summary ---
Author Organization [facility] Address [address] [place] [address] Care Team Providers Care Supervisor Plate Pasting Name Role Phone Glenn Isidro MD Primary Care Provider [phone] Encounter Details Date Type Department Care Team (Late st Contact Info) Description 02/10/2025 Telephone Gastroenterology - [place] [address] [place] [address] Teresa Colvin MA Social History Tobacco Use Types Packs/Day Years [...] Record ed Within the last 3 months, ho w many times did you visit the emergency [...] care for your loved ones. For example, childcare director or elderly care for an older [...] Orientation Straight 12/31/2024 12 :19 PM EDT documented as of this encounter Plan of Treatment Upcoming Encounters Date Type Department Care Team (Late st Contact Info) Description 04/20/2025 1:30 PM EDT Office Visit [facility] [address] [place] [address] Carley Alonzo MD [address] [place] [address] [address] [place] [phone] 04/21/2025 3:45 PM EDT Office Visit Adult Medicine [facility] [address] [place], [place] [phone] Glenn Isidro MD [address] [place], [place] 04/26/2025 12:[address] [facility] Endoscopy [address] [place] [phone] Anna Wheeler MD 175 [facility] [address] [place] [address] 07/24/2025 1:30 PM EST Ancillary Procedure [facility] - [facility] [address] [facility] [address] [place] [phone] documented as of this encounter Visit Diagnoses Not on filedocumented in this encounter Additional Health Concerns Assessment Noted Time PHQ-9 Depression Total Score: 0 10/08/19 3:05 PM EDT documented as of this encounter Care Teams Supervisor Plate Pasting Relationship Specialty Start Date End Date Glenn Isidro MD PCP - General Internal Medicine 08/03/24 documented as of this encounter
--- OUTSIDE RECORDS SUMMARY | 2025-03-14 11:43 | XMS_ITS | Clinical Summary ---
Author Organization [facility] Facility Address [address] [place] [address] Care Team Providers Care Talent Acquisition Operations Manager Name Role Phone Glenn Isidro MD Primary Care Provider [phone] Social History Tobacco Use Types Packs/Day Years [...] Colorectal Cancer Screening: Sigmoidoscopy 2000 Pneumococcal Vaccine: 50+ Ye ars (1 of 1 - PCV) 2001 Influenza Vaccine (#1) 2025 Hepatitis B Vaccine Aged Out No longe r eligible based on patient's age to complete this topic [place] [address] Medicare [facility] Medicare Care Teams Talent Acquisition Operations Manager Relationship Specialty Start Date End Date Glenn Isidro MD PCP - General Internal Medicine 08/31/23
[2025-03-14 11:55] LABS: Prostate Specific Antigen 0.89 ng/mL (<0.05-4.0)
== END 2025-03-14 09:16 | disposition home or self-care (01) ==
LOC: HO.LAB 09:15
PROVIDERS: PCP Internal Medicine; Visit Provider Urology
DX: E29.1 Testicular hypofunction (principal); Z12.5 Encounter for screening for malignant neoplasm of prostate
CPT/HCPCS: 36415; 84153; 84403; 85027

== ENCOUNTER 2025-03-30 11:05 | Outpatient (AMB) | payer MEDICARE, SELFPAY ==
--- NOTE | 2025-03-30 11:06 | A.OFFVIS_ITS ---
Intake Visit Reasons: 6m/Testo Intake Note: Patient is present for 6M follow up Urology Medication:,VITAMIN B6,ALL OPURINOL,ALFUZOSIN,TESTOSTERONE,TADALAFIL,SILDENAFIL Antibiotic Allergy:NONE Blood Thinner:APIXABAN Labs done 03/14/25: PSA 0.89, TOTAL TESTOSTERONE :1268 Industrial Safety Engineer Required: No Accompanied by: Self / Same As Patient Allergies No Known Allergies (No Known Allergies*) Allergy (Verified 03/30/25 11:08) HPI Comments Details: Adeline Gonzalez is a very pleasant male of [employer] extraction. He is a patient of Dr Isidro. He is seen for the following urologic conditions - hypogonadism - nephrolithiasis - lower urinary tract symptoms Six-month lab follow-up Increased daily to 10 mg with 40 mg on demand Testosterone high today- had been tested on a Thursday Restart alfuzosin Hypogonadism: Lab work stable Continue to follow. - testosterone injectable 80 mg weekly The patient presents for hypogonadism which was diagnosed years ago, and the patient reports no current symptoms. Laboratory testing has included Testosterone August 2014 446, August 2015 418 PSA 10/12 0.6 10/13 , Testosterone 247 - switch back to 2 packets per day, 11/12 , Testosterone - 6 pumps - 647, 05/15 , Testosterone 404, PSA 0.6 08/17 T 551, PSA 0.5, 02/14 T 739 PSA 0.8 02/15 T 701 PSA 0.6, 03/19 T 208 PSA 0.5, 12/18 253 0.5 42, 03/20 700 0.5 44, 09/18 T 912 P 1.0, 03/21 T920 P 1.1, 09/19 T 640, 03/22 800 0.96 48, 09/20 610 0.83 Erectile dysfunction secondary to diabetes As responsive to daily 5 mg tadalafil and on demand Lower urinary tract symptoms Initial presentation with weakness of stream and nocturia Good response to Flomax with decreased nocturia Switch from Flomax to alfuzosin for retrograde ejaculation Nephrolithiasis/Urolithiasis: They are here for further evaluation of nephrolithiasis - minimal symptoms. Urolithiasis was diagnosed 2014. The patient previously had kidney stones whose composition w a calcium oxalate 09/15 , calcium oxalate - dihydrate 80%. Laboratory investigations include 11/11 - , Normocalcemia (9.0), Normal PTH, Normal uric acid. 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 Prior treatment(s) include 06/14 R ESWL 12/14 medical management, with allopurinol, vitamin B6. Prior imaging includes a CT (computed tomography) scan of the abdomen/pelvis (stone protocol) August 2014. 3 stones each one to 2 mm in size low pole right kidney. , an x-ray August 2015 4 mm right lower pole, 04/13 R 5mmx3 mid pole 10/13 , , a KUB x-ray 5mm right 04/14 , a KUB x-ray, showing radiodense stone(s) R >L - 6mm 07/16 KUB small fragments on right 01/13 , a renal ultrasound, showing radiodense stone(s) R>L - small each side 08/17 , a renal ultrasound bilateral small stones, right cyst 08/18 renal us - stones 5mm on right, none on left, cysts small bilateral 01/16 renal ultrasound right kidney 1.2 cm stone, left kidney 7 mm, 11/17 renal ultrasound bilateral stones similar size Current therapeutic plan will be Keep on Vit B6 PFSH Medical History Impotence Obesity HTN (hypertension) Diabetes mellitus, type II Hyperoxaluria Weak urinary stream Hypogonadism in male Erectile dysfunction Surgical History S/P panniculectomy S/P ventral herniorrhaphy S/P cardiac pacemaker procedure Hx of laparoscopic gastric banding Hx of knee surgery History of surgery Family History Mother Hypertension Diabetes Father Heart disease Diabetes Sister No problems noted. Sister No problems noted. Sister No problems noted. Sister No problems noted. Sister Diabetes Sister No problems noted. Sister Diabetes Brother No problems noted. Brother Diabetes Son No problems noted. Son No problems noted. Daughter No problems noted. Daughter No problems noted. Daughter Diabetes Social History Alcohol intake: never Patient Tobacco Use Status: Never used Tobacco Assessment & Plan Assessment & Plan (1) Nephrolithiasis: Code(s): N20.0 - Calculus of kidney Category: Medical (2) Erectile dysfunction associated with type 2 diabetes mellitus: Code(s): E11.69 - Type 2 diabetes mellitus with other specified complication; N52.1 - Erectile dysfunction due to diseases classified elsewhere Category: Medical (3) BPH w urinary obs/LUTS: Code(s): N40.1 - Benign prostatic hyperplasia with lower urinary tract symptoms; N13.8 - Other obstructive and reflux uropathy Category: Medical Plan Trial off use Six-month follow-up lab work Orders: Orders Prostate Specific Antigen 5 Months E29.1 - Testicular hypofunction Testosterone, Total 5 Months E29.1 - Testicular hypofunction Hematocrit 5 Months E29.1 - Testicular hypofunction Medications: Refilled alfuzosin ER Take before bedtime 10 mg PO BEDTIME 90 tabs 0RF 90 days N13.8 - Other obstructive and reflux uropathy, N40.1 - Benign prostatic hyperplasia with lower urinary tract symptoms, R39.12 - Poor urinary stream testosterone cypionate (Depo-Testosterone) 80 mg (0.4 mL) subcut QWEEK 2 mL 5RF 4 weeks E29.1 - Testicular hypofunction, [id number] Patient Instructions: This note is constructed using voice recognition software. While every effort has been made to ensure accuracy research development director errors may have been included. Imaging studies, laboratory and physical exam results were discussed and reviewed in detail. No major barriers to patient understanding were identified. An opportunity to ask questions regarding the treatment plan was provided. All questions were answered. The patient expressed understanding and agreement with the above treatment plan. The patient is aware they should contact our office by phone for worsening of their current condition or the appearance of new urologic symptoms. Compliance is encouraged with any medications and followup testing that is ordered. It is a privilege to participate in the urologic care of your patient. If you have any questions or concerns regarding treatment for the above conditions, or other urologic issues, please do not hesitate to contact me. The office telephone contact is [phone]. Sincerely, Dr Paul Macdonald MD, [facility] - Urology Compassionate Specialist Care for the Genitourinary System Coding Level of Care Code Est Pt Level 4 (84890) Diagnoses Nephrolithiasis N20.0 Erectile dysfunction associated with type 2 diabetes mellitus E11.69; N52.1 BPH w urinary obs/LUTS N40.1; N13.8
--- OUTSIDE RECORDS SUMMARY | 2025-03-30 12:59 | XMS_ITS | Encounter Summary ---
Author Organization [employer] [facility] [employer] Address [address] [place] [address] Care Team Providers Care Machine Accountant Name Role Phone Glenn Isidro MD Primary Care Provider Reason for Visit * Reason Onset Date Comments Anticoagulation 03/30/2025 Colonoscopy 03/30 03/23 Dr. Wheeler Encounter Details Date Type Department Care Team (Late st Contact Info) Description 03/30/2025 Telephone Gastroenterology - [address] [place] [address] Tara Guevara MA Social History Tobacco Use Types Packs/Day [...] care for your loved ones. For example, director child or elderly care for an older adult? [...] Date Recorded What is your living situation? Unrecognized valu e 10/07/2024 Sex and Gender Information Value Date Recorded Sex Assigned at Male 12/31/2024 12:19 PM EDT Legal Sex Male 9:42 AM EST Gender Identity Male 12/31/2024 12:19 PM EDT Sexual Orientation Straight 12/31/2024 12 :19 PM EDT documented as of this encounter Progress Notes * Yumiko Tejada NP - 03/30/2025 11:59 AM EDT OK to hold * Bruna Aviles RN - 03/30/2025 9:37 AM EDT The patient was last seen in the office on 08/26/24. He has a history of tachybradycardia syndrome, paroxysmal atrial fibrillation, hx of prolonged pauses while in the hospital, and permanent pacemaker. May he hold Eliquis for 2 days prior to 04/26/25 Colonoscopy? * Tara Guevara MA - 03/30/2025 9:33 AM EDT Patient is scheduled to have Colonoscopy with Dr. Wheeler on 04/26/25. Please advise if ok to have patient hold his Eliquis x 2 days prior to procedure. documented in this encounter Plan of Treatment Upcoming Encounters Date Type Department Care Team (Late st Contact Info) Description 04/20/2025 1:30 PM EDT Office Visit [facility] [address] [address] [address] [place] [id number] Carley Alonzo MD [address] [place] [address] [address] [place] [id number] 04/21/2025 3:45 PM EDT Office Visit Adult Medicine [facility] [address] [place] [address] Glenn Isidro MD [address] [place] [address] 04/26/2025 12:00 PM EDT Appointment [facility] Endoscopy [address] [place] [address] Anna Wheeler MD [address] [facility] [address] [place] [address] 07/24/2025 1:30 PM EST Ancillary Procedure [facility] [address] [facility] [address] [place] [address] documented as of this encounter Goals Goal Patient Goal Type Associated Problems Recent Progress Patient-Stated? Author Autogenerat ed Goal Care Plan Autogenerated Problem No Padmini Ji documented as of this encounter Visit Diagnoses Not on filedocumented in this encounter Additional Health Concerns Active Problems Noted Date Diagnosed Date Autogenerated Problem 03/28/2025 Assessment Noted Time PHQ-9 Depression Total Score: 0 10/08/19 25 3:05 PM EDT documented as of this encounter Care Teams Machine Accountant Relationship Specialty Start Date End Date Glenn Isidro MD PCP - General Internal Medicine 08/03/24 documented as of this encounter
--- OUTSIDE RECORDS SUMMARY | 2025-03-30 12:59 | XMS_ITS | Clinical Summary ---
Author Organization [facility] Facility Address [address] [place] [address] Care Team Providers Care Varnish Dipper Name Role Phone Glenn Isidro MD Primary Care Provider [phone] Social History Tobacco Use Types Packs/Day Years [...] patient's age to complete this topic [place] [address] Medicare [facility] [employer] Medicare Care Teams Varnish Dipper Relationship Specialty Start Date End Date Glenn Isidro MD PCP - General Internal Medicine 08/31/23
--- OUTSIDE RECORDS SUMMARY | 2025-03-30 12:59 | XMS_ITS | Clinical Summary ---
Author Organization [facility] Address [address] [place] [address] Phone Care Team Providers Care College Associate Name Role Phone Glenn Isidro MD Primary Care Provider Allergies No known active allergies Medications loratadine (CLARITIN) 10 mg tablet TAKE 1 TABLET BY MOUTH DAILY 90 tablet 1 05/04/20 24 Active atorvastatin (LIPITOR) 40 mg tablet Take 1 tablet (40 mg total) by mouth at bedtime. 04/04/20 24 Active TESTOSTERONE IM Inject 12 mg into the shoulder, thigh, or buttocks 1 (one) time per week. Active ferrous sulfate 325 mg (65 mg elemental iron) tablet Take 1 tablet (325 mg total) by mouth 1 (one) time each day. 07/28/19 24 Active blood sugar diagnostic (OneTouch Verio test strips) test strip Inject 1 Lancet into the skin 3 (three) times a day. 07/07/19 24 Active lancets (OneTouch Delica Plus Lancet) 30 gauge 1 each by Not Applicable route 3 (three) times a day. 01/01/20 23 Active blood-glucose meter (ACCU-CHEK PEPE PLUS METER [facility]) To test sugars 3x a day. 03/20/20 21 Active allopurinoL (ZYLOPRIM) 100 mg tablet Take [...] TABLET BY MOUTH DAILY 90 tablet 1 06/09/20 24 Active glipiZIDE (GLUCOTROL XL) 2.5 mg 24 hr tablet TAKE 1 TABLET BY MOUTH DAILY 90 tablet 1 06/09/20 24 Active omeprazole (PriLOSEC) [address] capsuleIndicati ons:Gastroesoph ageal reflux disease without esophagitis TAKE 1 CAPSULE BY MOUTH DAILY 90 capsule 3 08/03/19 25 Active coenzyme Q10 400 mg capsule Take [...] each day. Active FreeStyle Lite Meter monitoring kitIndications: 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, without long-term current use of insulin 1 each 1 (one) time each day. Use to test blood sugars daily 1 each 10/12/19 25 026 Active blood sugar diagnostic (FreeStyle Lite Strips) test stripIndication s: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, without long-term current use of insulin Use to test blood sugars daily 100 each 3 10/12/19 25 026 Active FreeStyle Lancets 28 gauge lancetsIndicati ons: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, without long-term current use of insulin Use to test blood sugar daily 100 each 3 10/12/19 25 026 Active Eliquis 5 mg tablet TAKE 1 TABLET BY MOUTH TWICE DAILY 180 tablet 3 11/03/19 25 Active metFORMIN (FORTAMET) 1,000 mg 24 hr tablet Take 1 tablet (1,000 mg total) by mouth 1 (one) time each day. 90 tablet 11/15/19 25 Active Vitamin D3 50 mcg (2,000 unit) tablet TAKE 1 TABLET BY MOUTH EVERY DAY 90 tablet 1 12/21/19 25 Active metoprolol succinate (TOPROL-XL) 25 mg 24 hr tablet TAKE 1 TABLET BY MOUTH DAILY 90 tablet 03/28/20 25 Active metoprolol succinate (TOPROL-XL) 25 mg 24 hr tablet Take 1 tablet (25 mg total) by mouth 1 (one) time each day. 90 tablet 01/18/20 25 025 Discontinued Active Problems Problem Noted Date Diagnosed Date Essential hypertension, benign 05/24/2024 Overview (05/24/2024): Last Assessment & Plan: Patient's blood pressure is under excellent control with a reading today of 130/80. He continues on metoprolol and losartan. Tachycardia-bradycardia syndrome (CMS/[facility] V24, C HI/[facility] V28) 03/13/2023 Overview (05/24/2024): Last Assessment & Plan: Patient has history of tachybradycardia syndrome status post pacemaker implantation. No recent cardiac rhythm abnormalities were identified. Primary osteoarthritis of both knees 10/21/2021 Gastroesophageal reflux disease 08/29/2019 Atrial fibrillation ([facility] V24, [facility] V28) 0 08/18/2019 Overview (05/24/2024): Last Assessment & Plan: Patient has history of atrial fibrillation and continues on anticoagulation with Eliquis 5 mg twice daily. He is appropriately rate controlled on metoprolol 25 mg daily. PLMD (periodic limb movement disorder) 0 Microalbuminuria 06/02/2019 Patellofemoral arthritis of left knee 03/22/2019 Primary osteoarthritis of left knee 03/22/2019 Type 2 diabetes, controlled, with renal manifestation ([facility] V24, [facility] V28) 05/29/2015 Renal cysts, acquired, bilateral 10/02/2014 Overview (05/24/2024): Follows with Dr. Shields Renal stone 08/18/2014 Sebaceous cyst 05/10/2012 Obstructive sleep apnea 02/19/2012 Overview (05/24/2024): [facility] Polysomnogram: Date 07/16/2019; Wt 268#; BMI [...] obesity with BMI of 4 0.0-44.9, adult ([facility] V24, [facility] V28) Encounters Date Type Department Care Team Description 03/30/2025 Telephone Gastroenterology - [address] [facility] [address] [place] [phone] Tara Guevara MA 02/10/2025 Telephone Gastroenterology - [place] 175 [facility] 175 [facility] [address] [place] [address] Teresa Colvin MA 02/10/2025 Telephone Gastroenterology - [place] [address] [facility] [address] [place] [phone] Anna Wheeler MD 01/26/2025 1:55 AM EDT Ancillary Procedure [facility] - [facility] [address] [facility] [address] [place] [phone] from Last 3 Months Immunizations Immunization Administration Dates Next Due DTaP, Unspecified 09/25/2000 Hepatitis B (Uuafaow-A-Zfzof , Recombivax HB-Adult) 19yo and older 01/04/2001 [...] Date Site/Laterality Comments KNEE ARTHROSCOPY Left PROCEDURE: AR ARTHROSCOPY AID TX SPINE&/FX KNEE W/O FIXJ; COMMENT: -2003 LAPAROSCOPIC GASTRIC BANDING 2007 PROCEDURE: LAP ADJUSTABLE GASTRIC BAND COLONOSCOPY 02/07/2014 PROCEDURE: HISTORICAL COLONOSCOPY; COMMENT: tics and hemorrhoids; repeat in ten yrs OTHER SURGICAL HISTORY 2010 PROCEDURE: AR UNLISTED PX ABDOMEN MUSCULOSKELETAL SYSTEM; COMMENT: abdominoplasty HERNIA REPAIR PROCEDURE: AR RPR 1ST INGUN HRNA AGE 6 MO-5 [...] for your loved ones. For example, director maternal child or elderly care for an older [...] Description 04/20/2025 1:30 PM EDT Office Visit [facility]iology [facility] [address] [place] [address] [address] [place] [address] Carley Alonzo MD [address] [place] [address] [address] [place] [phone] 04/21/2025 3:45 PM EDT Office Visit Adult Medicine [facility] [address] [place] [address] Glenn Isidro MD [address] [place] [address] 04/26/2025 12:00 PM EDT Appointment [facility] [address] [place] [phone] Anna Wheeler MD 175 [facility] [address] [place] [address] 07/24/2025 1:30 PM EST Ancillary Procedure [facility] - [facility] [address] [facility] [address] [place] [address] Health Maintenance Due Date Last Done Comments [...] on patient's age to complete this topic Goals Goal Patient Goal Type Associated Problems Recent Progress Patient-Stated? Author Autogenerat ed Goal Care Plan Autogenerated Problem No [employer] Implanted Type Area Cooker Helper Device Identifier Shelf Expiration Date Model / Serial / Lot Medt-Card Radha Xt Dr Almendarez [id number] Implanted: (Quantity not on file) Cardiac Pacemaker [employer] - CARDIAC RHYTH-CRDM RADHA XT DR ALMENDAREZ / [id number] / Medt-Card Radha Xt Dr Almendarez [id number] Implanted: (Quantity not on file) Cardiac Pacemaker [employer] - CARDIAC RHYTH-CRDM RADHA XT DR ALMENDAREZ [id number] / [id number] / Procedures Procedure Name Priority Date/Time Associated Diagnosis Comments CARDIAC DEVICE CHECK- REMOTE- MURJ Routine 01/26/2025 1:54 AM EDT MICROALBUMIN CREATININE URINE RATIO Routine 09/27/2024 11:51 AM EDT 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, without long-term current use of insulin ([facility] V24, CMS/[facility] V28) COMPREHENSIVE METABOLIC PANEL Routine 09/27/2024 11:51 AM EDT 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, without long-term current use of insulin (CMS/HCC V24, CMS/[facility] V28) Essential hypertension, benign Encounter for long-term (current) use of medications HEMOGLOBIN A1C Routine 09/27/2024 11:51 AM EDT 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, without long-term current use of insulin ([facility] V24, [facility] V28) LIPID PANEL WITH REFLEX TO DIRECT LDL Routine 09/27/2024 11:51 AM EDT 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, without long-term current use of insulin ([facility] V24, [facility] V28) Hypercholesterolemi a EXTERNAL DIABETIC RETINA EYE EXAM 06/15/2024 HM COLONOSCOPY Routine 02/07/2014 from Last 3 Months or Most Recently Relevant to Health Maintenance Results * Cardiac device check - Remote- MURJ (01/26/2025 1:54 AM EDT) Date Time Interrogation Session [id number] CV DEVICE CHECK Type Interrogation Session Remote CV DEVICE CHECK Implantable Pulse Generator Cooker Helper MDT CV DEVICE CHECK Implantable Pulse Generator Type IPG CV DEVICE CHECK Implantable Pulse Generator Model [place] XT DR MRI [id number] CV DEVICE CHECK Implantable Pulse Generator Serial Number [id number] CV DEVICE CHECK Implantable Pulse Generator Implant Date [id number] CV DEVICE CHECK Battery Remaining Longevity 112.0 CV DEVICE CHECK Battery Voltage 2.990 CV D EVICE CHECK Battery WOOD FLOOR LAYER Trigger 2.625 CV DEVICE CHECK Battery Status Middle of Service CV DEVICE CHECK Farhad Statistic RA Percent Paced 16.41 CV DEVICE CHECK Farhad Statistic RV Percent Paced 0.04 CV DEVICE CHECK Atrial Tachy Statistic AT/AF [place] Percent 0.00 CV DEVICE CHECK Lead Channel [...] LAB CHEMISTRY METHOD 09/27/2024 5:35 PM EDT [facility] Triglycerides 171(H) 0 - 150 mg/dL LAB CHEMISTRY METHOD 09/27/2024 5:35 PM EDT [facility] HDL 50 >=40 mg/dL LAB CHEMISTRY METHOD 09/27/2024 5:35 PM EDT [facility] LDL Calculated 20 0 - 100 mg/dL LAB CHEMISTRY METHOD 09/27/2024 5:35 PM EDT [facility] VLDL Cholesterol Teja 34.2 mg/dL LAB CHEMISTRY METHOD 09/27/2024 5:35 PM EDT [facility] Non HDL Chol. (LDL+VLDL) 54 <145 mg/dL LAB CHEMISTRY METHOD 09/27/2024 5:35 PM EDT [facility] Chol/HDL Ratio 2.1 0.0 - 4.4 LAB CHEMISTRY METHOD 09/27/2024 5:35 PM EDT [facility] Blood Venous blood specimen / Unknown Venipuncture / Unknown 09/27/2024 11:51 AM EDT 09/27/2024 11:51 AM EDT us Glenn Isidro MD LAB BLOOD ORDERABLES Final Resu lt [facility] [address] [place] [address], * (ABNORMAL) Microalbumin creatinine urine ratio (09/27/2024 11:51 AM EDT) Creatinine, Urine 142.0 mg/dL LAB CHEMISTRY METHOD 09/27/2024 7:25 PM EDT [facility] Microalb, Ur 54.3(H) 0.0 - 29.0 mg/L LAB CHEMISTRY METHOD 09/27/2024 7:25 PM EDT [facility] Microalb/Crea t Ratio 38(H) <30 mg/g creat LAB CHEMISTRY METHOD 09/27/2024 7:25 PM EDT [facility] Urine Urine specimen obtained by clean catch procedure / Unknown Non-blood Collection / Unknown 09/27/2024 11:51 AM EDT 09/27/2024 11:51 AM EDT us Glenn Isidro MD LAB URINE ORDERABLES Final Resu lt Performing Organization Address [facility]/ZIP Co de Phone Number [facility] [address] [place] [address], [place] [phone] * (ABNORMAL) Hemoglobin A1c (09/27/2024 11:51 AM EDT) Hemoglobin A1C 6.6(H) <6.5 % LAB CHEMISTRY METHOD 09/27/2024 10:32 PM EDT [facility] Mean Bld Glu Estim. 143 mg/dL LAB CHEMISTRY METHOD 09/27/2024 10:32 PM EDT [facility] Blood Venous blood specimen / Unknown Venipuncture / Unknown 09/27/2024 11:51 AM EDT 09/27/2024 11:51 AM EDT us Glenn Isidro MD LAB BLOOD ORDERABLES Final Resu lt [facility] [address] [place] [address], [place] [phone] * (ABNORMAL) Comprehensive metabolic panel (09/27/2024 11:51 AM EDT) Pathologist [facility] Sodium 141 133 - 145 mmol/L LAB CHEMISTRY METHOD 09/27/2024 5:35 PM EDT [facility] Potassium 3.6 3.5 - 5.5 mmol/L LAB CHEMISTRY METHOD 09/27/2024 5:35 PM EDT [facility] Chloride 107 96 - 110 mmol/L LAB CHEMISTRY METHOD 09/27/2024 5:35 PM EDT [facility] CO2 26 21 - 32 mmol/L LAB CHEMISTRY METHOD 09/27/2024 5:35 PM EDT [facility] Anion Gap 8 3 - 11 LAB CHEMISTRY METHOD 09/27/2024 5:35 PM [facility] Glucose 173(H) 70 - 100 mg/dL LAB CHEMISTRY METHOD 09/27/2024 5:35 PM [facility] BUN 15 5 - 25 mg/dL LAB CHEMISTRY METHOD 09/27/2024 5:35 PM [facility] Creatinine 1.08 0.70 - 1.30 mg/dL LAB CHEMISTRY METHOD 09/27/2024 5:35 PM [facility] eGFR 72 >=60 mL/min/1. 73m2 LAB CHEMISTRY METHOD 09/27/2024 5:35 PM [facility] Comment:Calculation based on the Chronic Kidney Disease Epidemiology Collaboration (CKD-EPI) equation refit without adjustment for race. BUN/Creatinine Ratio 13.9 LAB CHEMISTRY METHOD 09/27/2024 5:35 PM [facility] Calcium 8.8 8.5 - 10.5 mg/dL LAB CHEMISTRY METHOD 09/27/2024 5:35 PM [facility] AST (SGOT) 40 10 - 42 unit/L LAB CHEMISTRY METHOD 09/27/2024 5:35 PM [facility] ALT (SGPT) 52 10 - 60 unit/L LAB CHEMISTRY METHOD 09/27/2024 5:35 PM [facility] Alkaline Phosphatase 72 42 - 121 unit/L LAB CHEMISTRY METHOD 09/27/2024 5:35 PM [facility] Total Protein 7.4 6.0 - 8.0 g/dL LAB CHEMISTRY METHOD 09/27/2024 5:35 PM [facility] Albumin 3.8 3.2 - 5.0 g/dL LAB CHEMISTRY METHOD 09/27/2024 5:35 PM [facility] Total Bilirubin 0.7 0.0 - 1.4 mg/dL LAB CHEMISTRY METHOD 09/27/2024 5:35 PM [facility] Blood Venous blood specimen / Unknown Venipuncture / Unknown 09/27/2024 11:51 AM EDT 09/27/2024 11:51 AM EDT Glenn Isidro MD LAB BLOOD ORDERABLES Final Resu lt [facility]) [facility] [address] [place] [address], * External Diabetic Retina Eye Exam Report (06/15/2024) Anatomical Region Laterality Modality Ultrasound Provider Onbase IMG US PROCEDURES Final Resul t * Hm Colonoscopy (02/07/2014) HM Colonoscopy No Interpretation , Abstracted Anatomical Region Laterality Modality Other Historical Provider HEALTH MAINTENANCE Final Result from Last 3 Months or Most Recently Relevant to Health Maintenance Additional Health Concerns Active Problems Noted Date Diagnosed Date Autogenerated Problem 03/28/2025 Insurance [employer] Advance Directives Documents on File Type Date Recorded Patient School Librarian Expl anation Health Care Decision (hx) 09/05/2023 [...] 05/13/2022 HE ALTH CARE PROXY Care Teams College Associate Relationship Specialty Start Date End Date Glenn Isidro MD PCP - General Internal Medicine 08/03/24
== END 2025-03-30 12:03 | disposition home or self-care (01) ==
PROVIDERS: PCP Internal Medicine; Visit Provider Urology
DX: N20.0 Calculus of kidney (principal); E11.69 Type 2 diabetes mellitus with other specified complication; N52.1 Erectile dysfunction due to diseases classified elsewhere; N40.1 Benign prostatic hyperplasia with lower urinary tract symptoms; N13.8 Other obstructive and reflux uropathy
CPT/HCPCS: 99214

== ENCOUNTER → 2025-03-30 11:05 | Outpatient (BNVA) | payer MEDICARE, SELFPAY | PROVIDERS: PCP Internal Medicine; Visit Provider Urology | DX: N20.0 Calculus of kidney (principal); N40.1 Benign prostatic hyperplasia with lower urinary tract symptoms; N13.8 Other obstructive and reflux uropathy; E11.69 Type 2 diabetes mellitus with other specified complication; N52.1 Erectile dysfunction due to diseases classified elsewhere | CPT/HCPCS: 99212 ==